=== PATIENT | female | born 1930 | race Caucasian/White ===

== ENCOUNTER 2016-05-10 10:05 | Inpatient (IN) | payer MEDICARE, OTHER ==
[2016-05-10] MEDS ORDERED: NORMAL SALINE 1,000 ML IV ONE (10:41)
--- NOTE | 2016-05-10 11:04 | ERNOTE ---
Lower Extremity HPI - Narrative Date of Service: 05/10/16 - General Lower Extremities Pain: hip: left Time Seen by Provider: 05/10/16 10:37 Source: patient Exam Limitations: no limitations - Immun/Allergies/Home Medications Immunizations: IMMUNIZATION HX Immunizations Up to Date Yes History of Influenza Vaccine No Hx Pneumococcal Vaccination No Allergies/Adverse Reactions: Allergies Allergy/AdvReac Type Severity Reaction Status Date / Time No Known Allergies Allergy Verified 05/10/16 10:36 Home Medications: HOME MEDICATIONS Escitalopram Oxalate [Lexapro] 10 mg PO DAILY 07/30/14 [Last Taken Unknown] Levothyroxine Sodium [Synthroid] 50 mcg PO DAILY 07/30/14 [Last Taken Unknown] Metoprolol Tartrate [Lopressor] 25 mg PO BID 07/30/14 [Last Taken Unknown] Mirtazapine [Mirtazapine (Remeron)] 15 mg PO HS 07/30/14 [Last Taken Unknown] Atorvastatin Calcium 20 mg PO HS 05/10/16 [Last Taken Unknown] Clopidogrel Bisulfate [Plavix] 75 mg PO DAILY 05/10/16 [Last Taken Unknown] Famotidine 20 mg PO HS 05/10/16 [Last Taken Unknown] Lisinopril [Zestril] 2.5 mg PO DAILY 05/10/16 [Last Taken Unknown] Mirtazapine [Mirtazapine (Remeron)] 15 mg PO HS PRN 05/10/16 [Last Taken Unknown ] - History of Present Illness Narrative: Patient brought in by ambulance for fall. Patient to fell yesterday while at the grocery store was then taken home by a friend. She is unable to get out of bed. This morning when daughter try to get her up she had a heart time getting her out of bed and getting her up. ambulance was called to the home residence. Patient was in bed unable to move the left leg. Left leg is slightly internally rotated and shortened. Patient was given morphine in route. She is alert and oriented but does have a slurred speech which daughter thinks it's normal. Denies hitting her head no loss of consciousness denies any present headache at this point in time. Patient was recently discharged from the [facility] just after [place]. She sustained a mild heart attack per daughter and had stents placed in She is denying any abdominal pain no chest pain. She does have a skin tear the right upper arm Date (Duration): 05/09/16 Occurred: other - last night Location of Incident: other - grocery store Method of Injury: Reports: fell Loss of Consciousness: Reports: no loss of consciousness Associated Symptoms: Reports: unable to bear weight. Denies: dizzy/light headedness, chest pain, vomiting/diarrhea, bowel/bladder problems Review of Systems - Review of Systems Constitutional: Absent: fever, chills, diaphoresis, weakness, fatigue ENT: Absent: ear discharge, pulling on ears Respiratory: Absent: shortness of breath, cough, orthopnea Cardiology: Absent: chest pain, palpitations, syncope Gastrointestinal/Abdominal: Absent: nausea, vomiting, diarrhea All Other Systems: All systems neg except as marked - Patient's Past Medical History Patient History - Medical: Anxiety, Depression, Hypothyroidism, Osteoarthritis, Renal Disease, UTI'S Patient History - Cardiac/Respiratory: Coronary Heart Disease, Myocardial Infarction Patient History - Cancer: No Hx of Cancer, Melanoma Patient History - Surgical Procedures: Cataracts, Hysterectomy Patient History - Other: None - Family History Mother Family History - Medical: Family History - Cancer: Colon, Other - skin cancer Father Family History - Medical: , Other - skin problems - Social History Living Situations: other Does anyone smoke in the home?: No Smoking Status: Never smoker Patient requests Smoking Cessation Consult: No Initiate information on Smoking Cessation: No Alcohol Use: none Drug Use: none - Immunizations Immunizations Up to Date: Yes Hx Pneumococcal Vaccination: No History of Influenza Vaccine: No Physical Exam - Physical Exam General Appearance: Present: wd/wn, alert, no apparent distress Eye Exam: PERRL: bilateral, EOMI: bilateral Ears, Nose, Throat: Present: normal ENT inspection, hearing grossly normal, normal pharynx Neck: Present: normal inspection, nontender, supple, full range of motion Respiratory: Present: no respiratory distress, normal breath sounds, no accessory muscle use, chest nontender, lungs clear Cardiovascular/Chest: Present: regular rate, rhythm, no murmur, normal peripheral pulses Peripheral Pulses: N=norm/S=strong/W=weak/B=bound/A=absent: Femoral (R): Normal , Femoral (L): Normal, Dorsalis-pedis (R): Normal, Dorsalis-pedis (L): Normal Gastrointestinal/Abdominal: Present: normal bowel sounds, nontender, nondistended, soft, no organomegaly Back Exam: Present: normal range of motion, no CVA tenderness Extremity Exam: Present: no edema, pelvis stable, other - left hip is internally rotated and shortened good pedal pulses. Decreased range of movement at the left hip joint otherwise pelvis is stable upon compression. Distal neurovascular intact. Neurological Exam: Present: alert, oriented, normal mood/affect, no motor/ sensory deficits Skin Exam: Present: normal color, other - skin tear on the right upper extremity measuring about 7 cm L-shaped not actively bleeding upper extremities and joints moving all joints well no deformity ED Progress - Date and Time Seen: Date and Time: 05/10/16 12:39 Reevaluated at this time - Results and Orders Patient's Lab Results:: I have reviewed the patient's lab results. - Vital Signs Patient's Vital Signs:: I have reviewed the patient's vital signs. Vital Signs: Vital Signs 05/10/16 05/10/16 10:20 10:36 Temperature 36.8 C 36.8 C Pulse Rate 70 70 Respiratory 12 12 Rate Blood Pressure 133/71 133/71 O2 Sat by Pulse 96 96 Oximetry - EKG EKG: NSR EKG read: Reviewed by me EKG Comments: No acute changes, nonspecific ST-T wave changes was inverted T waves in aVL She had a second EKG done at 1447, once again sinus rhythm nonspecific ST-T wave changes no acute changes at this time heart rate 64 - X-Ray X-Ray #1 X-Ray: hip Interpretation: Reviewed by me X-ray Comments: Fracture at the femoral neck of the left femur X-Ray #2 X-Ray: chest Interpretation: Reviewed by me - no acute changes - CT/Ultrasound CT/Ultrasound Narrative: ct Scan of the head acute changes - Progress/Reassessment Chief Complaint: Hip Pain/Injury Progress:: Unchanged Progress Note-Subjective: 05/11/16 09:35 Patient to be admitted to the hospital admitted to Dr. Elam, consulting physician will be Dr. García orthopedics, done through the ER. The patient will be needing medical clearance. Patient be admitted acute [facility] floor with telemetry sent up stable in good condition - Transfer of Care Expected Disposition: Admit Departure Clinical Impression: Hip fracture, left Qualifiers: Encounter type: initial encounter Fracture type: closed Qualified Code(s): S72.002A - Fracture of unspecified part of neck of left femur, initial encounter for closed fracture - Departure Disposition: [facility] Condition: Stable
[2016-05-10 11:07] LABS: Hematocrit 43.3 % (37.0-47.0); Hemoglobin 13.8 gm/dL (12.5-16.0); Mean Cell Volume 92.1 fl (78-100); Mean Corpuscular Hemoglobin 29.4 pg (27-31); Mean Corpuscular Hgb Conc 31.9 g/dl (32-36); Mean Platelet Volume 11.1 fl (6.0-9.5); Neutrophil # 8.2 K/mm3 (1.3-6.0); Neutrophil % 83.4 % (42-75.0); Platelet Count 155 K/mm3 (150-450); Red Cell Distribution Width 13.5 % (11.5-14.0); White Blood Count 9.8 K/mm3 (4.0-10.5)
[2016-05-10 11:18] LABS: Prothrombin Time (Patient) 11.5 Seconds (9.4-11.4)
[2016-05-10 11:19] LABS: INR 1.11 INR (0.90-1.10); Partial Thrombolplastin Time 25.9 Seconds (24-32)
[2016-05-10 11:28] LABS: Albumin * 3.4 gm/dl (3.4-5.0); Anion Gap 13.9 mmol/L (6.8-13.8); BUN/Creatinine Ratio 15.8 (9.0-21.6); Ca. Corrected For Albumin 9.1 mg/dL (8.4-10.2); Calcium * 8.9 mg/dL (7.9-10.9); Carbon Dioxide 26.3 mmol/L (24-32.6); Potassium 4.2 mmol/L (3.4-4.6); Total Protein 6.6 gm/dL (6.2-8.2)
[2016-05-10 11:29] LABS: Urine Bilirubin Negative (NEGATIVE); Urine Blood Negative /ul (NEGATIVE); Urine Ketone Negative (NEGATIVE); Urine Nitrite Negative (NEGATIVE); Urine Protein Negative (NEGATIVE); Urine Specific Gravity >=1.030 SP.GR. (1.005-1.010); Urine Urobilinogen Normal (NORMAL)
[2016-05-10 11:31] LABS: Troponin I 0.617 ng/ml (0.00-0.10)
[2016-05-10 11:38] LABS: Urine Appearance Clear; Urine Bacteria None Seen; Urine Color Yellow; Urine RBC None Seen /hpf (0-5); Urine WBC None Seen /hpf (0-5)
[2016-05-10] MEDS ORDERED: POTASSIUM CHLORIDE 10 MEQ in DEXTROSE 5 % IN WATER 1,000 ML IV PRN ×4 (14:28→14:37)
[2016-05-10] MEDS ORDERED: ACETAMINOPHEN 325 MG TABLET PO PRN (15:02)
--- NOTE | 2016-05-10 15:51 | CONS ---
- Reason for consultation (1) Hip fracture, left Date of Service: 05/10/16 HPI - History of Present Illness Initial Comments: Virginia is an 85 yo F who fell at home last night and sustained a displaced L femoral neck fracture. She recently sustained an CT and underwent PCI and was recently [facility] the [facility] after her recovery. She is a home ambulator and usually ambulates with a cane or walker. Her troponin levels were elevated at 0.6 in the ED this morning. She has been admitted to Medicine. She currently denies any chest pain or hip pain. Allergies/Adverse Reactions: Allergies No Known Allergies Allergy (Verified 05/10/16 10:36) Home Medications: Home Medications Medication Instructions Recorded Last Taken Escitalopram Oxalate [Lexapro] 10 mg PO DAILY 07/30/14 Unknown Levetiracetam [Keppra] 250 mg PO BID 07/30/14 Unknown Levothyroxine Sodium [Synthroid] 25 mcg PO DAILY 07/30/14 Unknown Meloxicam [Mobic] 15 mg PO DAILY 07/30/14 Unknown Metoprolol Tartrate [Lopressor] 25 mg PO BID 07/30/14 Unknown Mirtazapine [Mirtazapine (Remeron)] 15 mg PO HS 07/30/14 Unknown Pantoprazole Sodium [Protonix] 40 mg PO DAILY 07/30/14 Unknown clonazePAM [Klonopin] 0.5 mg PO BID 07/30/14 Unknown - Patient's Past Medical History Patient History - Medical: Anxiety, Depression, Hypothyroidism, Osteoarthritis, Renal Disease, UTI'S Patient History - Cardiac/Respiratory: Coronary Heart Disease, Myocardial Infarction Patient History - Cancer: No Hx of Cancer, Melanoma Patient History - Surgical Procedures: Cataracts, Hysterectomy Patient History - Other: None LMP (females 10-50): Menopausal - Social History Living Situations: other Does anyone smoke in the home?: No Smoking Status: Never smoker Have you smoked in the past 12 months: No Patient requests Smoking Cessation Consult: No Initiate information on Smoking Cessation: No Alcohol Use: none Drug Use: none - Immunizations Immunizations Up to Date: Yes Hx Pneumococcal Vaccination: No History of Influenza Vaccine: No Procedures LINEAR REP LID LACER (04/09/13) Medications - Medications Current Medications: Current Medications Sodium Chloride (Sodium Chloride 0.9%) 1,000 mls @ 125 mls/hr IV .Q8H ONE Stop: 05/10/16 18:40 Last Admin: 05/10/16 12:06 Dose: 125 mls/hr Physical Examination - Exam Narrative: Gen: A&Ox3, NAD Resp: breathing nonlabored on 2L NC MSK: LLE shortened and externally rotated, able to flex and extend all toes, SILT, cap refill <3 sec X rays: Plain films of the pelvis and L hip demonstrate a displaced femoral neck fracture with shortening and internal rotation, mild to moderate pre- existing degenerative changes of the hip appreciated. Vital Signs: Vital Signs - Last Taken Temp 36.8 C 05/10/16 15:24 Pulse 65 05/10/16 15:24 Resp 18 05/10/16 15:24 BP 140/76 05/10/16 15:24 Pulse Ox 95 05/10/16 15:24 O2 Oxygen Delivery Method Nasal Cannula - Results and Findings: Lab/Microbiology results last 24 hrs: 85 yo F w/ displaced L femoral neck fx and elevated troponin following recent CT with PCI. - NWB, strict bedrest - mcgrath catheter - given her age, ambulatory status, and health status, I recommend a L hip hemiarthroplasty - tentatively planning for tomorrow am pending medical clearance - NPO @ midnight - troponins to be trended - continue care per Medicine team - Assessments/Findings (1) Hip fracture, left Problem: Acute Qualifiers: Encounter type: initial encounter Fracture type: closed Qualified Code(s) : S72.002A - Fracture of unspecified part of neck of left femur, initial encounter for closed fracture
[2016-05-10] MEDS ORDERED: FLU VACC QS2016-17 36MOS UP/PF 60 MCG/0.5 ML DISP.SYRIN IM ONE (17:00)
[2016-05-10 17:05] LABS: Hematocrit 39.6 % (37.0-47.0); Hemoglobin 12.7 gm/dL (12.5-16.0); Mean Cell Volume 91.5 fl (78-100); Mean Corpuscular Hemoglobin 29.3 pg (27-31); Mean Corpuscular Hgb Conc 32.1 g/dl (32-36); Mean Platelet Volume 11.7 fl (6.0-9.5); Platelet Count 138 K/mm3 (150-450); Red Blood Count 4.33 M/mm3 (4.2-5.4); Red Cell Distribution Width 13.6 % (11.5-14.0); White Blood Count 7.9 K/mm3 (4.0-10.5)
[2016-05-10 17:27] LABS: Anion Gap 10.3 mmol/L (6.8-13.8); BUN/Creatinine Ratio 17.1 (9.0-21.6); Calcium * 8.4 mg/dL (7.9-10.9); Estimated Creat Clear 19.5; Potassium 4.3 mmol/L (3.4-4.6); T4 Free * 1.17 ng/dL (0.76-1.46); TSH * 0.119 uIU/mL (0.358-3.74)
[2016-05-10 17:41] LABS: Troponin I 0.576 ng/ml (0.00-0.10)
[2016-05-10] MEDS: DEXTROSE 5 % IN WATER 1,000 ML IV PRN (18:02)
--- NOTE | 2016-05-10 19:06 | HP ---
Chief Complaint - Chief Complaint Date of Service: 05/10/16 Time of Service: 18:47 Chief Complaint: Hip injury History of Present Illness: This is an 85 y/o woman who uses a walker for ambulation who tripped on the curb today at the grocery store, falling onto her left side. She was brought to the [facility] ER because of pain and inability to stand, where she was found to have a left femoral neck fracture. If she remains still, she now has very little pain. She is functional, though forgetful, at home with her daughter and son-in-law. She wishes to resume her previous level of functioning, if possible, which she herself is able to articulate tonight. Her son in law confirms this desire for his [id number]. They both acknowledge the risks of hip repair in an 85 y/o person with known CAD. She does in fact have a history of an anterior wall IL, treated with a left anterior descending coronary artery stent over one year ago at the [facility]. Both deny any acute coronary events since. There has been no angina. Although her initial EKG here shows q waves in V1-V4, the repeat EKG is exactly the same, and there is no evidence of acute ischemia. Although the initial troponin is slightly elevated, a repeat troponin is essentially the same, and does not represent acute ischemia. The patient and her son-in-law wish to proceed with surgical repair of her hip fracture. Her labs show evidence of mild hypernatremic dehydration, which we are correcting at the present time. I have spoken by phone both with anesthesia, Tom Farah, and ortho, Dr. Catarino García, and we have all agreed to proceed with surgical repair tomorrow, in accordance with the patient's and her son-in-law's wishes. - Patient's Past Medical History Patient History - Medical: Anxiety, Depression, Hypothyroidism, Osteoarthritis, Renal Disease, UTI'S Patient History - Cardiac/Respiratory: Coronary Heart Disease, Myocardial Infarction Patient History - Cancer: Melanoma Patient History - Surgical Procedures: Cataracts, Hysterectomy Patient History - Other: None LMP (females 10-50): Menopausal - Family History Mother Family History - Medical: Family History - Cancer: Colon, Other - skin cancer Father Family History - Medical: , Other - skin problems - Social History Living Situations: other Does anyone smoke in the home?: No Smoking Status: Never smoker Have you smoked in the past 12 months: No Patient requests Smoking Cessation Consult: No Initiate information on Smoking Cessation: No Alcohol Use: rarely Drug Use: none - Immunizations Immunizations Up to Date: Yes Hx Pneumococcal Vaccination: No History of Influenza Vaccine: No Review Of Systems (GEN) - Review of Systems Generalized/Overall Review: Present: No Symptoms Reported EENTM: Present: Other - NEZ PERCE Respiratory: Present: No Symptoms Reported Cardiac: Present: No Symptoms Reported Abdominal: Present: No Symptoms Reported Genitourinary: Present: No Symptoms Reported Musculoskeletal: Present: Other - Hip fracture Neurological: Present: Other - History of bipolar II disorder Skin: Present: No Symptoms Reported Endocrine: Present: No Symptoms Reported Misc: All systems neg except as marked Immunizations: IMMUNIZATION HX Immunizations Up to Date Yes History of Influenza Vaccine No Hx Pneumococcal Vaccination No Allergies/Adverse Reactions: Allergies Allergy/AdvReac Type Severity Reaction Status Date / Time No Known Allergies Allergy Verified 05/10/16 10:36 Home Medications: HOME MEDICATIONS Escitalopram Oxalate [Lexapro] 10 mg PO DAILY 07/30/14 [Last Taken Unknown] Levothyroxine Sodium [Synthroid] 50 mcg PO DAILY 07/30/14 [Last Taken Unknown] Metoprolol Tartrate [Lopressor] 25 mg PO BID 07/30/14 [Last Taken Unknown] Mirtazapine [Mirtazapine (Remeron)] 15 mg PO HS 07/30/14 [Last Taken Unknown] Atorvastatin Calcium 20 mg PO HS 05/10/16 [Last Taken Unknown] Clopidogrel Bisulfate [Plavix] 75 mg PO DAILY 05/10/16 [Last Taken Unknown] Famotidine 20 mg PO HS 05/10/16 [Last Taken Unknown] Lisinopril [Zestril] 2.5 mg PO DAILY 05/10/16 [Last Taken Unknown] Mirtazapine [Mirtazapine (Remeron)] 15 mg PO HS PRN 05/10/16 [Last Taken Unknown ] Exam - Exam Vital Signs: Vital Signs - Last Taken Selected Entries 05/10/16 18:56 Temperature 36.4 C L Temperature Oral Source Pulse Rate 70 Respiratory 18 Rate Blood Pressure 98/53 Blood Pressure Supine Position O2 Sat by Pulse 95 Oximetry Oxygen Delivery Room Air Method Constitutional: Present: Alert, Oriented x3, Cooperative, Well developed, No distress, Elderly ENT Exam: Present: normal ENT inspection, pharynx normal, TMs normal, hard of hearing Eye Exam: bilateral eye: normal inspection, PERRL, EOMI Neck: Present: supple Back Exam: Present: normal inspection Respiratory: Present: lungs clear, no respiratory distress Cardiovascular/Chest: Present: regular rate, rhythm, no murmur Abdomen: Present: Normal bowel sounds, soft, nontender, nondistended, no rebound tenderness, no hepatospenomegaly, no masses Extremity: Present: other - pain with movement of left leg. Absent: pedal edema Skin Exam: Present: no cyanosis, cool/dry Neurologic: Present: alert, oriented x 3 Appearance: Present: appropriate appearance, neat, impaired recent memory Eye contact: Present: cooperative, good eye contact, normal speech Thoughts: Present: normal thought pattern Diagnostic Studies: Abnormal Lab Results 05/10/16 05/10/16 Range/Units 17:00 17:00 Plt Count 138 L (150-450) K/mm3 MPV 11.7 H (6.0-9.5) fl Sodium 146 H (132-142) mmol/L Plasma Sodium 147 H (130-142) mmol/L Chloride 111 H (97-106) mmol/L BUN 25 H (3-23) mg/dL Creatinine 1.46 H (0.4-1.4) mg/dL Est GFR (Non-Af Amer) 36 L (60-130) mL/min Random Glucose 133 H (70-110) mg/dL Troponin I 0.576 H* (0.00-0.10) ng/ml TSH 0.119 L (0.358-3.74) uIU/mL Laboratory Results WBC 7.9 K/mm3 (4.0-10.5) 05/10/16 17:00 RBC 4.33 M/mm3 (4.2-5.4) 05/10/16 17:00 Hgb 12.7 gm/dL (12.5-16.0) 05/10/16 17:00 Hct 39.6 % (37.0-47.0) 05/10/16 17:00 MCV 91.5 fl (78-100) 05/10/16 17:00 MCH 29.3 pg (27-31) 05/10/16 17:00 MCHC 32.1 g/dl (32-36) 05/10/16 17:00 RDW 13.6 % (11.5-14.0) 05/10/16 17:00 Plt Count 138 K/mm3 (150-450) L 05/10/16 17:00 MPV 11.7 fl (6.0-9.5) H 05/10/16 17:00 Immature Gran % (Auto) 0.20 % (0.001-0.429) 05/10/16 11:00 Immature Gran # (Auto) 0.02 K/mm3 (0.000-0.0310) 05/10/16 11:00 Neutrophils % 83.4 % (42-75.0) H 05/10/16 11:00 Lymphocytes % 7.5 % (20-51) L 05/10/16 11:00 Monocytes % 7.0 % (0.0-9) 05/10/16 11:00 Eosinophils % 1.4 % (0.0-3.0) 05/10/16 11:00 Basophils % 0.5 % (0.0-1.0) 05/10/16 11:00 Nucleated RBC % 0.0 k/mm3 (0-1) 05/10/16 11:00 Neutrophils # 8.2 K/mm3 (1.3-6.0) H 05/10/16 11:00 Lymphocytes # 0.7 k/mm3 (1.5-3.5) L 05/10/16 11:00 Monocytes # 0.7 k/mm3 (0.0-1.0) 05/10/16 11:00 Eosinophils # 0.1 k/mm3 (0.0-0.7) 05/10/16 11:00 Absolute Basophils 0.1 k/mm3 (0.0-0.1) 05/10/16 11:00 PT 11.5 Seconds (9.4-11.4) H 05/10/16 11:00 INR (Anticoag Therapy) 1.11 INR (0.90-1.10) H 05/10/16 11:00 PTT ([place]) 25.9 Seconds (24-32) 05/10/16 11:00 Sodium 146 mmol/L (132-142) H 05/10/16 17:00 Plasma Sodium 147 mmol/L (130-142) H 05/10/16 17:00 Potassium 4.3 mmol/L (3.4-4.6) 05/10/16 17:00 Chloride 111 mmol/L (97-106) H 05/10/16 17:00 Carbon Dioxide 29.0 mmol/L (24-32.6) 05/10/16 17:00 Anion Gap 10.3 mmol/L (6.8-13.8) 05/10/16 17:00 BUN 25 mg/dL (3-23) H 05/10/16 17:00 Creatinine 1.46 mg/dL (0.4-1.4) H 05/10/16 17:00 Est GFR (Non-Af Amer) 36 mL/min (60-130) L 05/10/16 17:00 BUN/Creatinine Ratio 17.1 (9.0-21.6) 05/10/16 17:00 Random Glucose 133 mg/dL (70-110) H 05/10/16 17:00 Calcium 8.4 mg/dL (7.9-10.9) 05/10/16 17:00 Calcium Adj for Albumin 9.1 mg/dL (8.4-10.2) 05/10/16 11:00 Total Bilirubin 1.0 mg/dL (0.0-1.1) 05/10/16 11:00 AST 28 U/L (0-48) 05/10/16 11:00 ALT 22 U/L (19-67) 05/10/16 11:00 Alkaline Phosphatase 67 U/L (50-170) 05/10/16 11:00 Troponin I 0.576 ng/ml (0.00-0.10) H* 05/10/16 17:00 Total Protein 6.6 gm/dL (6.2-8.2) 05/10/16 11:00 Albumin 3.4 gm/dl (3.4-5.0) 05/10/16 11:00 TSH 0.119 uIU/mL (0.358-3.74) L 05/10/16 17:00 Free T4 1.17 ng/dL (0.76-1.46) 05/10/16 17:00 Urine Color Yellow 05/10/16 11:21 Urine Appearance Clear 05/10/16 11:21 Urine pH 6.0 pH (5.0-7.0) 05/10/16 11:21 Ur Specific Ullin >=1.030 SP.GR. (1.005-1.010) 05/10/16 11:21 Urine Protein Negative mg/dL (NEGATIVE) 05/10/16 11:21 Urine Glucose (UA) Negative mg/dL (NEGATIVE) 05/10/16 11:21 Urine Ketones Negative mg/dL (NEGATIVE) 05/10/16 11:21 Urine Blood Negative /ul (NEGATIVE) 05/10/16 11:21 Urine Nitrate Negative (NEGATIVE) 05/10/16 11:21 Urine Bilirubin Negative mg/dl (NEGATIVE) 05/10/16 11:21 Urine Urobilinogen Normal EU/dl (NORMAL) 05/10/16 11:21 Ur Leukocyte Esterase Negative /ul (NEGATIVE) 05/10/16 11:21 Urine RBC None seen /hpf (0-5) 05/10/16 11:21 Urine WBC None seen /hpf (0-5) 05/10/16 11:21 Ur Epithelial Cells None seen /hpf (0-5) 05/10/16 11:21 Urine Bacteria None seen (NONE) 05/10/16 11:21 Urine Culture Comments No culture indicated 05/10/16 11:21 Assessment/Plan - Narrative Narrative: There are no contraindications at the present time to repair of her left femoral neck fracture. She is fairly functional for an 85 y/o woman, and she wishes to return to her previous level of functioning if possible. Risks higher than normal are advanced age and known CAD. She and her son-in-law expressed understanding of the risks and wish to proceed. We will correct the dehydration and hypernatremia overnight. We will repeat labwork and an EKG tomorrow morning. Surgical hip repair is planned for tomorrow. 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 transplanted heart: [place] heart Associated angina: without angina Qualified Code(s): I25.10 - Atherosclerotic heart disease of [place] coronary artery without angina pectoris (6) Hip fracture, left Problem: Acute Qualifiers: Encounter type: initial encounter Fracture type: closed Qualified Code(s) : S72.002A - Fracture of unspecified part of neck of left femur, initial encounter for closed fracture (7) Dehydration Problem: Acute (8) Hypertension Problem: Chronic Qualifiers: Hypertension type: essential hypertension Qualified Code(s): I10 - Essential (primary) hypertension (9) Hypothyroidism Problem: Chronic Qualifiers: Hypothyroidism type: acquired Qualified Code(s): E03.9 - Hypothyroidism, unspecified (10) Tremor Problem: Chronic
[2016-05-10] MEDS ORDERED: ATORVASTATIN CALCIUM 10 MG TABLET PO SCH (21:00)
[2016-05-10] MEDS: levETIRAcetam 500 MG TABLET PO SCH (21:41)
[2016-05-10] MEDS: METOPROLOL TARTRATE 25 MG TABLET PO SCH (21:41)
[2016-05-10] MEDS ORDERED: ATORVASTATIN CALCIUM 40 MG TABLET ONE (21:45)
[2016-05-10] MEDS: clonazePAM 0.5 MG TABLET PO SCH (21:46)
[2016-05-10] MEDS: FAMOTIDINE 20 MG TABLET PO SCH (21:53)
[2016-05-11] MEDS ORDERED: POTASSIUM CHLORIDE 10 MEQ in DEXTROSE 5 % IN WATER 1,000 ML IV SCH ×2 (01:00)
[2016-05-11] MEDS: DEXTROSE 5 % IN WATER 1,000 ML IV PRN (02:22)
[2016-05-11 05:07] LABS: Hematocrit 38.6 % (37.0-47.0); Hemoglobin 12.2 gm/dL (12.5-16.0); Mean Cell Volume 92.8 fl (78-100); Mean Corpuscular Hemoglobin 29.3 pg (27-31); Mean Corpuscular Hgb Conc 31.6 g/dl (32-36); Mean Platelet Volume 10.9 fl (6.0-9.5); Neutrophil # 4.2 K/mm3 (1.3-6.0); Neutrophil % 61.4 % (42-75.0); Platelet Count 115 K/mm3 (150-450); Red Blood Count 4.16 M/mm3 (4.2-5.4); Red Cell Distribution Width 13.6 % (11.5-14.0); White Blood Count 6.9 K/mm3 (4.0-10.5)
[2016-05-11 05:25] LABS: Anion Gap 12.2 mmol/L (6.8-13.8); BUN/Creatinine Ratio 14.7 (9.0-21.6); Calcium * 7.9 mg/dL (7.9-10.9); Carbon Dioxide 26.5 mmol/L (24-32.6); Estimated Creat Clear 19.9; Potassium 3.7 mmol/L (3.4-4.6)
[2016-05-11 05:38] LABS: Troponin I 0.453 ng/ml (0.00-0.10)
--- NOTE | 2016-05-11 07:34 | PN ---
Subjective - Date and Time Seen Date: 05/11/16 Time: 07:28 Subjective Narrative: Very little left hip pain. Feels OK. Has no questions. Reconfirms she wishes her hip to be operatively repaired. Had a good night. No nausea, chest pain, or SOB. Objective - Review of Systems Generalized/Overall Review: Reports: No Symptoms Reported EENTM: Reports: No Symptoms Reported Respiratory: Reports: No Symptoms Reported Cardiac: Reports: No Symptoms Reported Abdominal: Reports: No Symptoms Reported Genitourinary Symptoms: Reports: No Symptoms Reported Musculoskeletal Complaints: Reports: Other - left hip pain when moves. Neurological: Reports: No Symptoms Reported Skin: Reports: No Symptoms Reported Endocrine: Reports: No Symptoms Reported Misc: All systems neg except as marked - Vitals Vitals: Last Vital Signs Selected Entries 05/11/16 07:17 Temperature 37 C Temperature Oral Source Pulse Rate 56 L Respiratory 18 Rate Blood Pressure 136/75 Blood Pressure Supine Position O2 Sat by Pulse 94 Oximetry Oxygen Delivery Room Air Method Oxygen Flow 0 Rate - Abnormal Lab Findings Abnormal Lab Findings: Abnormal Lab Results 05/10/16 05/10/16 05/11/16 Range/Units 17:00 17:00 05:00 RBC (4.2-5.4) M/mm3 Hgb (12.5-16.0) gm/dL MCHC (32-36) g/dl Plt Count 138 L (150-450) K/mm3 MPV 11.7 H (6.0-9.5) fl Eosinophils % (0.0-3.0) % Sodium 146 H (132-142) mmol/L Plasma Sodium 147 H (130-142) mmol/L Chloride 111 H (97-106) mmol/L BUN 25 H (3-23) mg/dL Creatinine 1.46 H 1.43 H (0.4-1.4) mg/dL Est GFR (Non-Af Amer) 36 L 37 L (60-130) mL/min Random Glucose 133 H 124 H (70-110) mg/dL Troponin I 0.576 H* 0.453 H* (0.00-0.10) ng/ml TSH 0.119 L (0.358-3.74) uIU/mL 05/11/16 Range/Units 05:00 RBC 4.16 L (4.2-5.4) M/mm3 Hgb 12.2 L (12.5-16.0) gm/dL MCHC 31.6 L (32-36) g/dl Plt Count 115 L (150-450) K/mm3 MPV 10.9 H (6.0-9.5) fl Eosinophils % 7.8 H (0.0-3.0) % Sodium (132-142) mmol/L Plasma Sodium (130-142) mmol/L Chloride (97-106) mmol/L BUN (3-23) mg/dL Creatinine (0.4-1.4) mg/dL Est GFR (Non-Af Amer) (60-130) mL/min Random Glucose (70-110) mg/dL Troponin I (0.00-0.10) ng/ml TSH (0.358-3.74) uIU/mL - Exam Constitutional: Present: Alert, Oriented x3, Cooperative, Well developed, Well nourished, No distress ENT Exam: Present: normal ENT inspection, hard of hearing Neck: Present: supple Respiratory: Present: lungs clear, no respiratory distress Cardiovascular/Chest: Present: regular rate, rhythm, no murmur Abdomen: Present: Normal bowel sounds, soft, nontender, nondistended, no rebound tenderness, no hepatospenomegaly, no masses Extremity: Present: other - pain with left leg movement. Absent: pedal edema Skin Exam: Present: normal color, warm/dry, no cyanosis Neurologic: Present: alert, oriented x 3 Appearance: Present: appropriate appearance, appropriate insight, neat Eye contact: Present: cooperative, good eye contact Cauti Physician Documentation - Urinary Catheter Management Urethral (Sauer) Date of Insertion: 05/10/16 Assessment/Plan Plan Narrative: Her labwork today, including troponin, is stable. Her EKG is stable. Her hypernatremia has resolved. Her dehydration with renal failure has improved. There are no contraindications at the present time to surgical repair of the left femoral neck fracture, which may proceed as planned. I will now change her IV fluids to D5NS with 20 meQ KCl per liter. I will follow her with you post operatively. - Problems/Diagnosis (1) Bipolar 2 disorder Problem: Chronic (2) Osteoarthritis Problem: Chronic Qualifiers: Osteoarthritis location: multiple joints Osteoarthritis type: primary Qualified Code(s): M15.0 - Primary generalized (osteo)arthritis (3) Hypernatremia Problem: Acute (4) [place] (hard of hearing) Problem: Chronic Qualifiers: Hearing loss type: sensorineural Laterality: bilateral Qualified Code(s) : H90.3 - Sensorineural hearing loss, bilateral (5) CAD (coronary artery disease) Problem: Chronic Qualifiers: Coronary Disease-Associated Artery/Lesion type: [place] artery [place] vs. transplanted heart: [place] heart Associated angina: without angina Qualified Code(s): I25.10 - Atherosclerotic heart disease of [place] coronary artery without angina pectoris (6) Hip fracture, left Problem: Acute Qualifiers: Encounter type: initial encounter Fracture type: closed Qualified Code(s) : S72.002A - Fracture of unspecified part of neck of left femur, initial encounter for closed fracture (7) Dehydration Problem: Acute (8) Hypertension Problem: Chronic Qualifiers: Hypertension type: essential hypertension Qualified Code(s): I10 - Essential (primary) hypertension (9) Hypothyroidism Problem: Chronic Qualifiers: Hypothyroidism type: acquired Qualified Code(s): E03.9 - Hypothyroidism, unspecified (10) Tremor Problem: Chronic
[2016-05-11] MEDS: POTASSIUM CHLORIDE 20 MEQ in DEXTROSE 5%-NORMAL SALINE 990 ML IV SCH ×2 (08:32→22:50)
--- NOTE | 2016-05-11 08:32 | PN ---
Subjective - Date and Time Seen Date: 05/11/16 Subjective Narrative: No events overnight. Pain controlled this am. Denies chest pain/SOB. Objective - Vitals Vitals: Last Vital Signs Temp 37 C 05/11/16 07:17 Pulse 56 L 05/11/16 07:17 Resp 18 05/11/16 07:17 BP 136/75 05/11/16 07:17 Pulse Ox 94 05/11/16 07:17 - Abnormal Lab Findings Abnormal Lab Findings: Abnormal Lab Results 05/10/16 05/10/16 05/11/16 Range/Units 17:00 17:00 05:00 RBC (4.2-5.4) M/mm3 Hgb (12.5-16.0) gm/dL MCHC (32-36) g/dl Plt Count 138 L (150-450) K/mm3 MPV 11.7 H (6.0-9.5) fl Eosinophils % (0.0-3.0) % Sodium 146 H (132-142) mmol/L Plasma Sodium 147 H (130-142) mmol/L Chloride 111 H (97-106) mmol/L BUN 25 H (3-23) mg/dL Creatinine 1.46 H 1.43 H (0.4-1.4) mg/dL Est GFR (Non-Af Amer) 36 L 37 L (60-130) mL/min Random Glucose 133 H 124 H (70-110) mg/dL Troponin I 0.576 H* 0.453 H* (0.00-0.10) ng/ml TSH 0.119 L (0.358-3.74) uIU/mL 05/11/16 Range/Units 05:00 RBC 4.16 L (4.2-5.4) M/mm3 Hgb 12.2 L (12.5-16.0) gm/dL MCHC 31.6 L (32-36) g/dl Plt Count 115 L (150-450) K/mm3 MPV 10.9 H (6.0-9.5) fl Eosinophils % 7.8 H (0.0-3.0) % Sodium (132-142) mmol/L Plasma Sodium (130-142) mmol/L Chloride (97-106) mmol/L BUN (3-23) mg/dL Creatinine (0.4-1.4) mg/dL Est GFR (Non-Af Amer) (60-130) mL/min Random Glucose (70-110) mg/dL Troponin I (0.00-0.10) ng/ml TSH (0.358-3.74) uIU/mL - Exam Exam Narrative: Gen: A&Ox3, NAD Resp: breathing nonlabored on 2L NC MSK: LLE slightly shortened and externally rotated, 5/5 EHL/FHL/DF/PF, SILT, cap refill <3 sec Cauti Physician Documentation - Urinary Catheter Management Urethral (Sauer) Date of Insertion: 05/10/16 Assessment/Plan Plan Narrative: 85 yo F w/ displaced L femoral neck fracture. - to OR today for L hip uncemented bipolar hemiarthroplasty - troponins trending down, moderate surgical risk but cleared by Medicine - WBAT, anterior precautions post op - continue care per Medicine team - Problems/Diagnosis (1) Hip fracture, left Problem: Acute Qualifiers: Encounter type: initial encounter Fracture type: closed Qualified Code(s) : S72.002A - Fracture of unspecified part of neck of left femur, initial encounter for closed fracture
[2016-05-11] MEDS: METOPROLOL TARTRATE 25 MG TABLET PO SCH ×2 (08:33→20:33)
[2016-05-11] MEDS: LEVOTHYROXINE SODIUM 25 MCG TABLET PO SCH (08:33)
[2016-05-11] MEDS: PANTOPRAZOLE SODIUM 40 MG TABLET.EC PO SCH (08:33)
[2016-05-11] MEDS: levETIRAcetam 500 MG TABLET PO SCH ×2 (08:33→20:31)
[2016-05-11] MEDS ORDERED: TRANEXAMIC ACID 1,000 MG in NORMAL SALINE 100 ML IV ONE (08:42)
[2016-05-11] MEDS ORDERED: ceFAZolin SODIUM 1 GM VIAL IV ONE (08:42)
[2016-05-11] MEDS ORDERED: ROPIVACAINE HCL/PF 100 MG, EPINEPHrine 0.2 MG, KETOROLAC TROMETHAMINE 15 MG in NORMAL S... IJ PRN (08:43)
[2016-05-11] MEDS: clonazePAM 0.5 MG TABLET PO SCH ×2 (08:45→20:40)
[2016-05-11] MEDS ORDERED: ESCITALOPRAM OXALATE 10 MG TAB PO SCH (09:00)
[2016-05-11] MEDS ORDERED: LISINOPRIL 2.5 MG TABLET PO SCH (09:00)
[2016-05-11] MEDS ORDERED: RINGERS SOLUTION,LACTATED 1,000 ML IV ONE ×2 (09:25→10:35)
[2016-05-11] MEDS ORDERED: ONDANSETRON HCL/PF 2 MG/ML VIAL IV PRN (11:34)
[2016-05-11] MEDS ORDERED: PROMETHAZINE HCL 5 MG in DEXTROSE 5 % IN WATER 50 ML IV PRN ×2 (11:34)
[2016-05-11] MEDS ORDERED: oxyCODONE HCL/ACETAMINOPHEN 1 TAB TABLET PO PRN ×2 (11:34)
[2016-05-11] MEDS ORDERED: MAGNESIUM HYDROXIDE 30 ML UDC PO PRN (11:34)
[2016-05-11] MEDS ORDERED: MAG HYDROX/ALUMINUM HYD/SIMETH 30 ML UDC PO PRN (11:34)
[2016-05-11] MEDS ORDERED: ACETAMINOPHEN 500 MG TABLET PO PRN (11:34)
--- NOTE | 2016-05-11 11:55 | OR ---
Operative Report - Dictated Report Narrative: Date: 05/11/2016 Preoperative diagnosis: Closed left hip displaced femoral neck fracture. Postoperative diagnosis: Closed left hip displaced femoral neck fracture Procedure: Left hip uncemented geeta-arthroplasty. Surgeon: Catarino García M.D. Design Supervisor: Janelle Sam PA-C Anesthesia: Spinal. Complications: None Specimens: Bone for disposal. Estimated blood loss: 200 milliliters. Retained implants: Depuy [place] size 6 basic cemented femoral stem. Size 45 millimeter ouside diameter self-centering bipolar head with +5 millimeter cobalt chromium 28 mm femoral head. Indications: [place] Is a 85-year-old female household ambulator with a walker who sustained a ground-level fall at home. She was brought to the [facility] emergency department where workup revealed a displaced left femoral neck fracture. This patient was evaluated on the floor and found to have sustained a displaced femoral neck fracture. The risks and benefits were discussed with the patient as well as any power of attorney recruiter. Patient wished to proceed with surgical treatment. The risks, benefits, and alternatives discussed were , blood clots, bleeding, infection, nerve/tendon blood vessel/ injury, malposition of components, dislocation and/or instability of joint, intraoperative fracture, postoperative limited range of motion, persistent pain, failure of components, and need for additional procedures. Patient wished to proceed. Consent was obtained after answering all questions. Procedure: After marking the correct extremity on the floor, the patient was taken to the operating room. A timeout was performed. IV antibiotics consisting of 1 g of Ancef were administered prior to the procedure. A spinal anesthetic was induced by anesthesia. A Sauer catheter was inserted if not are in place. The patient was then transitioned to a lateral position on a well- padded pegboard. And an axillary roll was placed. The head was in neutral position. The non-operative down leg was well-padded with SCD and JANELLE hose in place. The arms were supported and padded to protect from any undue pressure on the bony prominences and nerves. Well-padded anterior and posterior pelvic and chest posts were secured in order to maintain a stable position of the pelvis. This was placed so that the pelvis was perpendicular to the floor. The body was in line with the pelvis. Once it was felt that we had protected all the bony prominences and the patient was well secured with a safety belt as well, the leg was pre-scrubbed with alcohol, prepped and draped in a standard sterile fashion. A standard anterior lateral hip incision was marked out over the greater trochanter. [place] drapes were then placed. The skin incision was then made. Sharp dissection with a scalpel utilizing cautery for hemostasis was carried out down to the gluteus and iliotibial band fascia. This was split in line with the skin incision. The greater trochanter bursa was excised. The anterior and posterior margins of the abductor tendon were identified. The anterior 1/3 of the tendon was tagged and reflected off the greater trochanter leaving a sleeve of tendon for repair at the completion of the case. This exposed the underlying hip joint capsule. An inverted T-type capsulotomy was made extending this up to the brim of the acetabulum. We encountered a hematoma at this point confirming an acute fracture as well as noted displacement of the femoral neck fracture. Using Ronda retractors to assist with elevation of the soft tissues off the anterior, superior, and inferior aspects of the femoral neck, the hip was then placed in a figure 4 position and the femoral neck cleanup cut was then made. With the leg in an externally rotated and adducted position, the cutting flag was utilized in order to michelle for a standard femoral neck cut approximately a fingerbreadth above the level of the lesser trochanter. This was done while protecting the surrounding soft tissues with Ronda retractors. The femoral head was then removed and sized for guidance on the size of the bipolar head. It was noted that there was no significant loss of articular cartilage on both the femoral head and weightbearing portions of the acetabulum. We then returned the leg to the table and turned our attention to the acetabulum. While protecting the surrounding soft tissues, the remaining tissue in the fovea was excised using electrocautery. This was then protected with a sponge while we returned our attention to the femur. With the leg in a figure 4 position utilizing Ronda retractors for soft tissue protection, a box cutting osteotome, followed by Uri awtoña, followed by serial broaches were utilized in order to prepare the femur. It was found that a size 6 broach gave good axial and rotational stability. The proximal femur was visualized to ensure that there were no signs of fracture. A series of heads were trialed. It was found that a + 5 femoral head gave good overall stability. There is minimal longitudinal instability. With the leg in the position of sleep the femoral head was well covered. Hip range of motion was able to reach full extension and external rotation to greater than 75 degrees prior to impingement along the posterior acetabulum. The hip was able to be flexed to greater than 90 degrees with internal rotation greater than 60 degrees prior to anterior impingement. The limb lengths were near equal based on comparison to the contralateral side. At this point was felt this was the appropriately sized femoral components as well as neck and femoral head. The trial implants were removed. The stem was then placed in the appropriate version and height compared to her [place] anatomy. The final femoral bipolar head was then impacted into place. The hip was then reduced and seated completely. The capsule was repaired with interrupted #1 Ethibond. The abductor tendon was repaired to the greater trochanter utilizing #5 Ethibond. This was oversewn with #1 Vicryl. The fascia was closed with interrupted #1 Vicryl. The wounds were thoroughly irrigated as we closed in layers. The deep fat layers were closed with 0 Vicryl and the dermis was approximated with interrupted 3-0 Vicryl. The skin was closed with malia. All sponge, needle, blade, and instrument counts were correct prior to closing the wounds. Sterile dressings consisting of Xeroform, 4 x 4's, ABD, and tape were applied. While removing the dressings, she sustained a skin tear to the left lateral lower leg approximately 15 cm in length. This was repaired using interrupted 4-0 nylon and dressed with xeroform , 4x4s, soft roll, and DARIA wrap. The patient was awoken and transferred to her hospital bed and then to the postanesthesia care unit in stable condition. Postoperative condition: The plan is to return to the medical/surgical inpatient floor postoperatively. Postoperatively 24 hours of IV antibiotics, pain control, physical therapy, occupational therapy, and medical comanagement will be utilized. Patient will be weightbearing as tolerated with anterior hip precautions.
[2016-05-11] MEDS: ceFAZolin SODIUM 1 GM in DEXTROSE 5 % IN WATER 100 ML IV SCH ×4 (13:58→20:29)
[2016-05-11] MEDS: FAMOTIDINE 20 MG TABLET PO SCH (20:32)
[2016-05-11] MEDS ORDERED: ROSUVASTATIN CALCIUM 10 MG TABLET PO SCH (21:00)
[2016-05-11] MEDS ORDERED: SENNOSIDES/DOCUSATE SODIUM 1 TAB TABLET PO SCH (21:00)
[2016-05-12] MEDS: ceFAZolin SODIUM 1 GM in DEXTROSE 5 % IN WATER 100 ML IV SCH ×2 (02:02)
[2016-05-12] MEDS ORDERED: HALOPERIDOL LACTATE 5 MG/ML VIAL IM PRN (03:30)
[2016-05-12] MEDS: POTASSIUM CHLORIDE 20 MEQ in DEXTROSE 5%-NORMAL SALINE 990 ML IV SCH ×3 (06:46→21:41)
[2016-05-12 06:58] LABS: Hemoglobin 9.5 gm/dL (12.5-16.0); Mean Cell Volume 92.6 fl (78-100); Mean Corpuscular Hemoglobin 29.3 pg (27-31); Mean Corpuscular Hgb Conc 31.7 g/dl (32-36); Mean Platelet Volume 11.9 fl (6.0-9.5); Neutrophil # 5.8 K/mm3 (1.3-6.0); Neutrophil % 78.1 % (42-75.0); Platelet Count 101 K/mm3 (150-450); Red Blood Count 3.24 M/mm3 (4.2-5.4); Red Cell Distribution Width 13.3 % (11.5-14.0); White Blood Count 7.4 K/mm3 (4.0-10.5)
[2016-05-12 07:11] LABS: Anion Gap 12.1 mmol/L (6.8-13.8); BUN/Creatinine Ratio 12.7 (9.0-21.6); Calcium * 7.8 mg/dL (7.9-10.9); Carbon Dioxide 23.2 mmol/L (24-32.6); Potassium 4.3 mmol/L (3.4-4.6)
[2016-05-12] MEDS: LEVOTHYROXINE SODIUM 25 MCG TABLET PO SCH (07:26)
[2016-05-12] MEDS: PANTOPRAZOLE SODIUM 40 MG TABLET.EC PO SCH (07:27)
[2016-05-12] MEDS ORDERED: MAG HYDROX/ALUMINUM HYD/SIMETH 30 ML UDC PO PRN (07:29)
[2016-05-12] MEDS ORDERED: ONDANSETRON HCL/PF 2 MG/ML VIAL IV PRN (07:29)
[2016-05-12] MEDS ORDERED: METOPROLOL TARTRATE 25 MG TABLET PO SCH ×2 (09:00→09:21)
[2016-05-12] MEDS ORDERED: LISINOPRIL 2.5 MG TABLET PO SCH (09:00)
[2016-05-12] MEDS ORDERED: HALOPERIDOL LACTATE 5 MG/ML VIAL IM STA (09:20)
[2016-05-12] MEDS ORDERED: NORMAL SALINE 1,000 ML IV ONE ×2 (09:20→11:45)
[2016-05-12] MEDS: ESCITALOPRAM OXALATE 10 MG TAB PO SCH (10:08)
[2016-05-12] MEDS: clonazePAM 0.5 MG TABLET PO SCH ×2 (10:08→20:13)
[2016-05-12] MEDS: levETIRAcetam 500 MG TABLET PO SCH ×2 (10:08→20:14)
[2016-05-12] MEDS: FERROUS SULFATE 325 MG TABLET PO SCH ×3 (10:08→15:59)
[2016-05-12] MEDS: MULTIVITAMINS 1 CAP CAPSULE PO SCH (10:09)
[2016-05-12] MEDS ORDERED: ENOXAPARIN SODIUM 30 MG/0.3 ML SYRG SC SCH (10:35)
[2016-05-12] MEDS: ENOXAPARIN SODIUM 30 MG/0.3 ML SYRG SC SCH (10:39)
--- NOTE | 2016-05-12 13:00 | PN ---
Subjective - Date and Time Seen Date: 05/12/16 Subjective Narrative: Patient with significant delirium and agitation overnight. Blood pressures still labile. Disoriented today. Objective - Vitals Vitals: Last Vital Signs Temp 36.9 C 05/12/16 11:00 Pulse 76 05/12/16 12:22 Resp 20 05/12/16 11:00 BP 92/52 05/12/16 12:22 Pulse Ox 96 05/12/16 11:00 - Abnormal Lab Findings Abnormal Lab Findings: Abnormal Lab Results 05/12/16 05/12/16 Range/Units 06:50 06:50 RBC 3.24 L (4.2-5.4) M/mm3 Hgb 9.5 L (12.5-16.0) gm/dL Hct 30.0 L (37.0-47.0) % MCHC 31.7 L (32-36) g/dl Plt Count 101 L (150-450) K/mm3 MPV 11.9 H (6.0-9.5) fl Neutrophils % 78.1 H (42-75.0) % Lymphocytes % 10.1 L (20-51) % Monocytes % 9.5 H (0.0-9) % Lymphocytes # 0.7 L (1.5-3.5) k/mm3 Chloride 110 H (97-106) mmol/L Carbon Dioxide 23.2 L (24-32.6) mmol/L Creatinine 1.58 H (0.4-1.4) mg/dL Est GFR (Non-Af Amer) 33 L (60-130) mL/min Random Glucose 112 H (70-110) mg/dL Calcium 7.8 L (7.9-10.9) mg/dL - Exam Exam Narrative: Gen: drowsy, disoriented to person, place, and time Resp: breathing comfortably on 2L NC MSK: LLE--> dressings c/d/i, minimal swelling, distal cap refill <3 sec, unable to assess strength or sensation due to patient confusion Cauti Physician Documentation - Urinary Catheter Management Urethral (Sauer) Date of Insertion: 05/10/16 Date of Removal: 05/12/16 Time of Removal: 06:39 Assessment/Plan Plan Narrative: 85 yo F w/ L displaced femoral neck fx s/p uncemented bipolar hemiarthroplasty, POD #1. - WBAT, anterior hip precautions - Percocet discontinued secondary to delirium, tylenol for pain - continue care in SCU per Medicine team - DVT ppx: teds/SCDs/lovenox - PT/OT - dispo: continue SCU care - Problems/Diagnosis (1) Hip fracture, left Problem: Acute Qualifiers: Encounter type: initial encounter Fracture type: closed Qualified Code(s) : S72.002A - Fracture of unspecified part of neck of left femur, initial encounter for closed fracture
--- NOTE | 2016-05-12 18:20 | PN ---
Subjective - Date and Time Seen Date: 05/12/16 Time: 07:00 Subjective Narrative: Combative and confused early this morning. Required 5 mg IM Haldol. Now sedated. Otherwise ok. Objective - Review of Systems Generalized/Overall Review: Reports: No Symptoms Reported - sedated - Vitals Vitals: Last Vital Signs Selected Entries 05/12/16 07:00 Temperature 37.5 C Temperature Temporal Artery Source Scan Pulse Rate 90 Pulse Rhythm Regular Pulse Strength Normal Respiratory 14 Rate Respiratory Normal Depth Respiratory Normal Effort Respiratory Normal Pattern Blood Pressure 80/40 Blood Pressure Supine Position O2 Sat by Pulse 94 Oximetry Oxygen Delivery Room Air Method - Abnormal Lab Findings Abnormal Lab Findings: Abnormal Lab Results 05/12/16 05/12/16 Range/Units 06:50 06:50 RBC 3.24 L (4.2-5.4) M/mm3 Hgb 9.5 L (12.5-16.0) gm/dL Hct 30.0 L (37.0-47.0) % MCHC 31.7 L (32-36) g/dl Plt Count 101 L (150-450) K/mm3 MPV 11.9 H (6.0-9.5) fl Neutrophils % 78.1 H (42-75.0) % Lymphocytes % 10.1 L (20-51) % Monocytes % 9.5 H (0.0-9) % Lymphocytes # 0.7 L (1.5-3.5) k/mm3 Chloride 110 H (97-106) mmol/L Carbon Dioxide 23.2 L (24-32.6) mmol/L Creatinine 1.58 H (0.4-1.4) mg/dL Est GFR (Non-Af Amer) 33 L (60-130) mL/min Random Glucose 112 H (70-110) mg/dL Calcium 7.8 L (7.9-10.9) mg/dL - Exam Constitutional: Present: Obtunded ENT Exam: Present: normal ENT inspection Neck: Present: normal inspection Respiratory: Present: lungs clear, no respiratory distress Cardiovascular/Chest: Present: regular rate, rhythm, no murmur Abdomen: Present: Normal bowel sounds, soft, nondistended, no hepatospenomegaly , no masses Extremity: Present: non-tender, no pedal edema Skin Exam: Present: normal color, warm/dry, no cyanosis Neurologic: Present: other Appearance: Present: neat Cauti Physician Documentation - Urinary Catheter Management Urethral (Sauer) Date of Insertion: 05/10/16 Date of Removal: 05/12/16 Time of Removal: 06:39 Assessment/Plan Plan Narrative: IV fluid bolus. Hold narcotics due to acute delerium. Follow labs. Med surg when able. Adjust bp meds. 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 transplanted heart: [place] heart Associated angina: without angina Qualified Code(s): I25.10 - Atherosclerotic heart disease of [place] coronary artery without angina pectoris (6) Hip fracture, left Problem: Acute Qualifiers: Encounter type: initial encounter Fracture type: closed Qualified Code(s) : S72.002A - Fracture of unspecified part of neck of left femur, initial encounter for closed fracture (7) Dehydration Problem: Acute (8) Hypertension Problem: Chronic Qualifiers: Hypertension type: essential hypertension Qualified Code(s): I10 - Essential (primary) hypertension (9) Hypothyroidism Problem: Chronic Qualifiers: Hypothyroidism type: acquired Qualified Code(s): E03.9 - Hypothyroidism, unspecified (10) Tremor Problem: Chronic (11) Hypotension Problem: Acute Qualifiers: Hypotension type: postprocedural hypotension Qualified Code(s): I95.81 - Postprocedural hypotension (12) Acute blood loss as cause of postoperative anemia Problem: Acute
[2016-05-12] MEDS: FAMOTIDINE 20 MG TABLET PO SCH (20:15)
[2016-05-12] MEDS: ROSUVASTATIN CALCIUM 10 MG TABLET PO SCH (20:15)
[2016-05-12] MEDS ORDERED: MIRTAZAPINE 15 MG TABLET PO SCH (21:00)
[2016-05-13 05:31] LABS: Hematocrit 29.7 % (37.0-47.0); Hemoglobin 9.4 gm/dL (12.5-16.0); Mean Cell Volume 93.1 fl (78-100); Mean Corpuscular Hemoglobin 29.5 pg (27-31); Mean Corpuscular Hgb Conc 31.6 g/dl (32-36); Mean Platelet Volume 11.2 fl (6.0-9.5); Neutrophil # 6.1 K/mm3 (1.3-6.0); Neutrophil % 73.7 % (42-75.0); Platelet Count 112 K/mm3 (150-450); Red Blood Count 3.19 M/mm3 (4.2-5.4); Red Cell Distribution Width 13.5 % (11.5-14.0); White Blood Count 8.3 K/mm3 (4.0-10.5)
--- NOTE | 2016-05-13 05:36 | PN ---
<Gladys Simpson - Last Filed: 05/13/16 06:25> Subjective - Date and Time Seen Date: 05/13/16 Time: 05:36 Subjective Narrative: Mrs. Toney continues to be confused this morning. Upon examination she is pulling at her telemetry and gown. She will not answer questions and is combative. Her respirations are increased, however her O2 saturations have remained in the high 90's and lung mcdonnell are clear. Mcgrath was dc'd yesterday and she has had 3 incontinent episodes since. Dressing on left hip remains c/d/ i. We will continue to hold all narcotics and benzos, Remeron 15mg was restarted last night as pt was combative pulling out multiple IVs, mcgrath, and attempting to get out of bed the night before. Overnight she was much more calm and did not pull out any IVs nor did she attempt to get out of bed. Betablocker will be increased to resume at normal home dose of 25mg. Objective - Review of Systems Generalized/Overall Review: Reports: No Symptoms Reported - MARIA L as pt is confused and does not respond to questioning. - Vitals Vitals: Last Vital Signs Temp 36.8 C 05/13/16 02:00 Pulse 84 05/13/16 02:00 Resp 18 05/13/16 02:00 BP 140/70 05/13/16 02:00 Pulse Ox 98 2L 05/13/16 02:00 - Abnormal Lab Findings Abnormal Lab Findings: Abnormal Lab Results 05/12/16 05/12/16 05/13/16 Range/Units 06:50 06:50 05:15 RBC 3.24 L 3.19 L (4.2-5.4) M/mm3 Hgb 9.5 L 9.4 L (12.5-16.0) gm/dL Hct 30.0 L 29.7 L (37.0-47.0) % MCHC 31.7 L 31.6 L (32-36) g/dl Plt Count 101 L 112 L (150-450) K/mm3 MPV 11.9 H 11.2 H (6.0-9.5) fl Immature Gran % (Auto) 0.50 H (0.001-0.429) % Immature Gran # (Auto) 0.04 H (0.000-0.0310) K/mm3 Neutrophils % 78.1 H (42-75.0) % Lymphocytes % 10.1 L 12.0 L (20-51) % Monocytes % 9.5 H 11.0 H (0.0-9) % Neutrophils # 6.1 H (1.3-6.0) K/mm3 Lymphocytes # 0.7 L 1.0 L (1.5-3.5) k/mm3 Chloride 110 H (97-106) mmol/L Carbon Dioxide 23.2 L (24-32.6) mmol/L Creatinine 1.58 H (0.4-1.4) mg/dL Est GFR (Non-Af Amer) 33 L (60-130) mL/min Random Glucose 112 H (70-110) mg/dL Calcium 7.8 L (7.9-10.9) mg/dL - Exam Constitutional: Present: Alert, Elderly, Thin and frail ENT Exam: Present: dry mucous membranes Respiratory: Present: no accessory muscle use, decreased breath sounds, No wheezing, other - tachypnea Cardiovascular/Chest: Present: normal peripheral pulses Abdomen: Present: Normal bowel sounds, soft, nontender, nondistended Extremity: Present: no pedal edema, normal capillary refill, swelling - left thigh Skin Exam: Present: normal color, warm/dry, no cyanosis, other - incision to left hip without erythema or warmth Lymphatic: Present: no adenopathy Neurologic: Present: alert, motor weakness, disoriented x 3 Appearance: Present: impaired insight Eye contact: Present: refused to answer, uncooperative Thoughts: Present: delusions, paranoid Cauti Physician Documentation - Urinary Catheter Management Urethral (Mcgrath) Urethral Indwelling: No Date of Insertion: 05/10/16 Date of Removal: 05/12/16 Time of Removal: 06:39 Assessment/Plan - Problems/Diagnosis (1) Hip fracture, left Problem: Resolved QualifierTitle: Encounter type: initial encounter Fracture type: closed Qualified Code(s): S72.002A - Fracture of unspecified part of neck of left femur, initial encounter for closed fracture Narrative: ORIF completed on 05/[address] García. Continue to hold narcotics d/t increase confusion and delirium in pt. Other orders per ortho. (2) Hypotension Problem: Resolved QualifierTitle: Hypotension type: postprocedural hypotension Qualified Code(s): I95.81 - Postprocedural hypotension (3) Bipolar 2 disorder Problem: Chronic (4) CAD (coronary artery disease) Problem: Chronic QualifierTitle: Coronary Disease-Associated Artery/Lesion type: [place] artery [place] vs. transplanted heart: [place] heart Associated angina: without angina Qualified Code(s): I25.10 - Atherosclerotic heart disease of [place] coronary artery without angina pectoris Narrative: Increase metoprolol to 25mg from 12.5mg as post op hypotension has resolved. Continue to hold DARIA-I (5) Hypothyroidism Problem: Chronic QualifierTitle: Hypothyroidism type: acquired Qualified Code(s): E03.9 - Hypothyroidism, unspecified Narrative: TSH this am. Continue Synthroid <Renard Camargo - Last Filed: 05/13/16 06:51> Objective - Vitals Vitals: Last Vital Signs Temp 36.8 C 05/13/16 02:00 Pulse 84 05/13/16 02:00 Resp 18 05/13/16 02:00 BP 140/70 05/13/16 02:00 Pulse Ox 98 05/13/16 02:00 - Abnormal Lab Findings Abnormal Lab Findings: Abnormal Lab Results 05/12/16 05/12/16 05/13/16 Range/Units 06:50 06:50 05:15 RBC 3.24 L 3.19 L (4.2-5.4) M/mm3 Hgb 9.5 L 9.4 L (12.5-16.0) gm/dL Hct 30.0 L 29.7 L (37.0-47.0) % MCHC 31.7 L 31.6 L (32-36) g/dl Plt Count 101 L 112 L (150-450) K/mm3 MPV 11.9 H 11.2 H (6.0-9.5) fl Immature Gran % (Auto) 0.50 H (0.001-0.429) % Immature Gran # (Auto) 0.04 H (0.000-0.0310) K/mm3 Neutrophils % 78.1 H (42-75.0) % Lymphocytes % 10.1 L 12.0 L (20-51) % Monocytes % 9.5 H 11.0 H (0.0-9) % Neutrophils # 6.1 H (1.3-6.0) K/mm3 Lymphocytes # 0.7 L 1.0 L (1.5-3.5) k/mm3 Potassium (3.4-4.6) mmol/L Chloride 110 H (97-106) mmol/L Carbon Dioxide 23.2 L (24-32.6) mmol/L Creatinine 1.58 H (0.4-1.4) mg/dL Est GFR (Non-Af Amer) 33 L (60-130) mL/min Random Glucose 112 H (70-110) mg/dL Calcium 7.8 L (7.9-10.9) mg/dL 05/13/16 Range/Units 05:15 RBC (4.2-5.4) M/mm3 Hgb (12.5-16.0) gm/dL Hct (37.0-47.0) % MCHC (32-36) g/dl Plt Count (150-450) K/mm3 MPV (6.0-9.5) fl Immature Gran % (Auto) (0.001-0.429) % Immature Gran # (Auto) (0.000-0.0310) K/mm3 Neutrophils % (42-75.0) % Lymphocytes % (20-51) % Monocytes % (0.0-9) % Neutrophils # (1.3-6.0) K/mm3 Lymphocytes # (1.5-3.5) k/mm3 Potassium 4.7 H (3.4-4.6) mmol/L Chloride 114 H (97-106) mmol/L Carbon Dioxide 23.5 L (24-32.6) mmol/L Creatinine (0.4-1.4) mg/dL Est GFR (Non-Af Amer) 43 L D (60-130) mL/min Random Glucose 124 H (70-110) mg/dL Calcium 7.6 L (7.9-10.9) mg/dL Assessment/Plan Plan Narrative: Still confused and uncooperative. Will use low dose meds. Will adjust potassium and follow labs. Avoid narcotics. I personally directed the nurse practitioner's care for this patient. 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 transplanted heart: [place] heart Associated angina: without angina Qualified Code(s): I25.10 - Atherosclerotic heart disease of [place] coronary artery without angina pectoris (6) Hip fracture, left Problem: Resolved Qualifiers: Encounter type: initial encounter Fracture type: closed Qualified Code(s) : S72.002A - Fracture of unspecified part of neck of left femur, initial encounter for closed fracture (7) Dehydration Problem: Acute (8) Hypertension Problem: Chronic Qualifiers: Hypertension type: essential hypertension Qualified Code(s): I10 - Essential (primary) hypertension (9) Hypothyroidism Problem: Chronic Qualifiers: Hypothyroidism type: acquired Qualified Code(s): E03.9 - Hypothyroidism, unspecified (10) Tremor Problem: Chronic (11) Hypotension Problem: Resolved Qualifiers: Hypotension type: postprocedural hypotension Qualified Code(s): I95.81 - Postprocedural hypotension (12) Acute blood loss as cause of postoperative anemia Problem: Acute
[2016-05-13 06:06] LABS: Anion Gap 9.2 mmol/L (6.8-13.8); BUN/Creatinine Ratio 12.7 (9.0-21.6); Calcium * 7.6 mg/dL (7.9-10.9); Carbon Dioxide 23.5 mmol/L (24-32.6); Estimated Creat Clear 22.6; Potassium 4.7 mmol/L (3.4-4.6); TSH * 2.098 uIU/mL (0.358-3.74)
[2016-05-13] MEDS: POTASSIUM CHLORIDE 20 MEQ in DEXTROSE 5%-NORMAL SALINE 990 ML IV SCH ×2 (06:13→06:26)
[2016-05-13] MEDS: DEXTROSE 5%-NORMAL SALINE 1,000 ML IV PRN ×2 (06:56→17:43)
[2016-05-13] MEDS: PANTOPRAZOLE SODIUM 40 MG TABLET.EC PO SCH (07:16)
[2016-05-13] MEDS: risperiDONE 0.25 MG TABLET PO SCH ×2 (07:16→19:14)
[2016-05-13] MEDS: LORazepam 0.5 MG TABLET PO SCH ×2 (07:16→13:59)
[2016-05-13] MEDS: LEVOTHYROXINE SODIUM 25 MCG TABLET PO SCH (07:16)
[2016-05-13] MEDS: ACETAMINOPHEN 325 MG TABLET PO PRN ×2 (07:24→17:32)
[2016-05-13] MEDS: FERROUS SULFATE 325 MG TABLET PO SCH ×3 (10:36→17:32)
[2016-05-13] MEDS: levETIRAcetam 500 MG TABLET PO SCH ×2 (10:36→20:51)
[2016-05-13] MEDS: MULTIVITAMINS 1 CAP CAPSULE PO SCH (10:37)
[2016-05-13] MEDS: METOPROLOL TARTRATE 25 MG TABLET PO SCH ×2 (10:37→20:56)
[2016-05-13] MEDS: ESCITALOPRAM OXALATE 10 MG TAB PO SCH (10:37)
[2016-05-13] MEDS: clonazePAM 0.5 MG TABLET PO SCH ×2 (10:37→21:19)
[2016-05-13] MEDS: ENOXAPARIN SODIUM 30 MG/0.3 ML SYRG SC SCH (10:39)
[2016-05-13] MEDS: ROSUVASTATIN CALCIUM 10 MG TABLET PO SCH (20:50)
[2016-05-13] MEDS: FAMOTIDINE 20 MG TABLET PO SCH (20:54)
[2016-05-13] MEDS: MIRTAZAPINE 15 MG TABLET PO SCH (20:55)
[2016-05-14] MEDS: LORazepam 0.5 MG TABLET PO SCH (00:19)
[2016-05-14] MEDS: DEXTROSE 5%-NORMAL SALINE 1,000 ML IV PRN ×3 (02:54→07:12)
[2016-05-14] MEDS: ACETAMINOPHEN 325 MG TABLET PO PRN ×2 (05:33→15:29)
--- NOTE | 2016-05-14 06:07 | PN ---
<Gladys Simpson - Last Filed: 05/14/16 06:12> Subjective - Date and Time Seen Date: 05/14/16 Time: 06:12 Subjective Narrative: Mrs. Toney is much more lethargic this morning, her ativan, risperidone, and klonopin was restarted yesterday due to combativeness. Ativan was held last night due to lethargy. I suspect that the addition of these are what is causing her to be more sedated, so will dc this. She has slight expiratory wheezing upon examination with continued tachypnea, although oxygen saturations have remained in the mid 90's. I will decrease her IVF incase she is getting some pulmonary edema. She had a total of 8 incontinent voids yesterday with 370ml PO intake. Dressing to hip remains c/d/i, continue to work with PT if mentation allows. I suspect she will have a long road to recovery due to advanced age, decreased excretion of medications and hospital induced delirium complicating recovery. Objective - Review of Systems Generalized/Overall Review: Reports: No Symptoms Reported - MARIA L, pt does not wake up during examination - Vitals Vitals: Last Vital Signs Temp 37.1 C 05/14/16 02:15 Pulse 63 05/14/16 02:15 Resp 20 05/14/16 02:15 BP 144/84 05/14/16 02:15 Pulse Ox 93 05/14/16 02:15 - Abnormal Lab Findings Abnormal Lab Findings: Abnormal Lab Results 05/13/16 Range/Units 05:15 Potassium 4.7 H (3.4-4.6) mmol/L Chloride 114 H (97-106) mmol/L Carbon Dioxide 23.5 L (24-32.6) mmol/L Est GFR (Non-Af Amer) 43 L D (60-130) mL/min Random Glucose 124 H (70-110) mg/dL Calcium 7.6 L (7.9-10.9) mg/dL - EKG/Xray Findings EKG: NSR - Exam Constitutional: Present: No distress, Somnolent, Elderly, Thin and frail ENT Exam: Present: hard of hearing Respiratory: Present: no respiratory distress, decreased breath sounds, wheezing , expiration (prolonged) Cardiovascular/Chest: Present: normal peripheral pulses, regular rate, rhythm, no chest tenderness, no murmur Abdomen: Present: Normal bowel sounds, soft, nontender, nondistended Extremity: Present: normal range of motion, normal capillary refill, lower extremity edema - left lower extremity Skin Exam: Present: normal color, warm/dry, no cyanosis Lymphatic: Present: no adenopathy Cauti Physician Documentation - Urinary Catheter Management Urethral ([place]) Urethral Indwelling: No Date of Insertion: 05/10/16 Date of Removal: 05/12/16 Time of Removal: 06:39 Assessment/Plan - Problems/Diagnosis (1) Hip fracture, left Problem: Resolved QualifierTitle: Encounter type: initial encounter Fracture type: closed Qualified Code(s): S72.002A - Fracture of unspecified part of neck of left femur, initial encounter for closed fracture Narrative: Continue to work with PT/OT once pt more alert. OOB for meals. No narcotics or benzos. Further orders per Dr. García. (2) Bipolar 2 disorder Problem: Chronic Narrative: Stable, hold all major tranquilizers, benzos, and narcotics. If pt is combative consider PRN haldol for shorter effect. (3) CAD (coronary artery disease) Problem: Chronic QualifierTitle: Coronary Disease-Associated Artery/Lesion type: [place] artery [place] vs. transplanted heart: [place] heart Associated angina: without angina Qualified Code(s): I25.10 - Atherosclerotic heart disease of [place] coronary artery without angina pectoris Narrative: Continue betablocker, continue to hold DARIA-I. (4) Hypothyroidism Problem: Chronic QualifierTitle: Hypothyroidism type: acquired Qualified Code(s): E03.9 - Hypothyroidism, unspecified Narrative: TSH improved this morning, continue synthroid. <Renard Camargo - Last Filed: 05/14/16 10:03> Objective - Vitals Vitals: Last Vital Signs Temp 36.4 C L 05/14/16 06:51 Pulse 71 05/14/16 08:34 Resp 20 05/14/16 06:51 BP 144/72 05/14/16 08:34 Pulse Ox 92 05/14/16 06:51 - Abnormal Lab Findings Abnormal Lab Findings: Abnormal Lab Results 05/14/16 Range/Units 06:12 Sodium 145 H (132-142) mmol/L Plasma Sodium 145 H (130-142) mmol/L Chloride 114 H (97-106) mmol/L Carbon Dioxide 21.8 L (24-32.6) mmol/L Est GFR (Non-Af Amer) 51 L (60-130) mL/min Calcium 7.4 L (7.9-10.9) mg/dL Assessment/Plan Plan Narrative: I have reviewed the record, examined the patient, and directly supervised Gladys Simpson's care for the patient. Sedated this morning. We will stop benzodiazepines, major tranquilizers, and as much as we can, proceed with post op protocol. 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 transplanted heart: [place] heart Associated angina: without angina Qualified Code(s): I25.10 - Atherosclerotic heart disease of [place] coronary artery without angina pectoris (6) Hip fracture, left Problem: Resolved Qualifiers: Encounter type: initial encounter Fracture type: closed Qualified Code(s) : S72.002A - Fracture of unspecified part of neck of left femur, initial encounter for closed fracture (7) Dehydration Problem: Acute (8) Hypertension Problem: Chronic Qualifiers: Hypertension type: essential hypertension Qualified Code(s): I10 - Essential (primary) hypertension (9) Hypothyroidism Problem: Chronic Qualifiers: Hypothyroidism type: acquired Qualified Code(s): E03.9 - Hypothyroidism, unspecified (10) Tremor Problem: Chronic (11) Hypotension Problem: Resolved Qualifiers: Hypotension type: postprocedural hypotension Qualified Code(s): I95.81 - Postprocedural hypotension (12) Acute blood loss as cause of postoperative anemia Problem: Acute
[2016-05-14 06:22] LABS: Anion Gap 13.1 mmol/L (6.8-13.8); BUN/Creatinine Ratio 11.1 (9.0-21.6); Calcium * 7.4 mg/dL (7.9-10.9); Carbon Dioxide 21.8 mmol/L (24-32.6); Estimated Creat Clear 26.4; Potassium 3.9 mmol/L (3.4-4.6)
[2016-05-14] MEDS: PANTOPRAZOLE SODIUM 40 MG TABLET.EC PO SCH (07:02)
[2016-05-14] MEDS: LEVOTHYROXINE SODIUM 25 MCG TABLET PO SCH (07:02)
[2016-05-14] MEDS: FERROUS SULFATE 325 MG TABLET PO SCH ×3 (08:33→16:06)
[2016-05-14] MEDS: ESCITALOPRAM OXALATE 10 MG TAB PO SCH (08:34)
[2016-05-14] MEDS: DEXTROSE 5%-0.2 NORMAL SALINE 1,000 ML IV PRN ×2 (08:34→23:55)
[2016-05-14] MEDS: levETIRAcetam 500 MG TABLET PO SCH ×2 (08:34→20:39)
[2016-05-14] MEDS: MULTIVITAMINS 1 CAP CAPSULE PO SCH (08:34)
[2016-05-14] MEDS: METOPROLOL TARTRATE 25 MG TABLET PO SCH ×2 (08:34→20:42)
[2016-05-14] MEDS: ENOXAPARIN SODIUM 30 MG/0.3 ML SYRG SC SCH (11:29)
[2016-05-14] MEDS ORDERED: FUROSEMIDE 10 MG/ML VIAL IV ONE (13:30)
[2016-05-14] MEDS: ROSUVASTATIN CALCIUM 10 MG TABLET PO SCH (20:39)
[2016-05-14] MEDS: FAMOTIDINE 20 MG TABLET PO SCH (20:39)
[2016-05-14] MEDS: MIRTAZAPINE 15 MG TABLET PO SCH (20:40)
[2016-05-15 05:03] LABS: Hematocrit 30.9 % (37.0-47.0); Mean Cell Volume 89.3 fl (78-100); Mean Corpuscular Hemoglobin 28.9 pg (27-31); Mean Corpuscular Hgb Conc 32.4 g/dl (32-36); Mean Platelet Volume 11.3 fl (6.0-9.5); Neutrophil # 6.8 K/mm3 (1.3-6.0); Neutrophil % 75.9 % (42-75.0); Platelet Count 170 K/mm3 (150-450); Red Blood Count 3.46 M/mm3 (4.2-5.4); Red Cell Distribution Width 13.5 % (11.5-14.0); White Blood Count 8.9 K/mm3 (4.0-10.5)
[2016-05-15 05:13] LABS: Anion Gap 13.3 mmol/L (6.8-13.8); BUN/Creatinine Ratio 10.7 (9.0-21.6); Calcium * 7.9 mg/dL (7.9-10.9); Carbon Dioxide 24.3 mmol/L (24-32.6); Estimated Creat Clear 23.3; Potassium 3.6 mmol/L (3.4-4.6)
--- NOTE | 2016-05-15 07:00 | PN ---
Subjective - Date and Time Seen Date: 05/15/16 Time: 06:56 Subjective Narrative: Less combative and confused. More cooperative with nursing staff. No apparent pain. Objective - Review of Systems Generalized/Overall Review: Reports: No Symptoms Reported - poor historian - Vitals Vitals: Last Vital Signs Selected Entries 05/15/16 02:32 Temperature 36.6 C Temperature Oral Source Pulse Rate 91 Pulse Rhythm Regular Pulse Strength Normal Respiratory 16 Rate Respiratory Normal Depth Respiratory Normal Effort Non-Labored Respiratory Normal Pattern Blood Pressure 166/88 Blood Pressure Supine Position O2 Sat by Pulse 95 Oximetry Oxygen Delivery Room Air Method - Abnormal Lab Findings Abnormal Lab Findings: Abnormal Lab Results 05/15/16 05/15/16 Range/Units 04:30 04:30 RBC 3.46 L (4.2-5.4) M/mm3 Hgb 10.0 L (12.5-16.0) gm/dL Hct 30.9 L (37.0-47.0) % MPV 11.3 H (6.0-9.5) fl Neutrophils % 75.9 H (42-75.0) % Lymphocytes % 10.8 L (20-51) % Monocytes % 10.2 H (0.0-9) % Neutrophils # 6.8 H (1.3-6.0) K/mm3 Lymphocytes # 1.0 L (1.5-3.5) k/mm3 Est GFR (Non-Af Amer) 44 L (60-130) mL/min Random Glucose 117 H (70-110) mg/dL - Exam Constitutional: Present: Alert, Cooperative, Well developed, No distress ENT Exam: Present: normal ENT inspection Neck: Present: normal inspection Respiratory: Present: lungs clear, no respiratory distress Cardiovascular/Chest: Present: regular rate, rhythm, no murmur Abdomen: Present: Normal bowel sounds, soft, nontender, nondistended, no rebound tenderness, no hepatospenomegaly, no masses Extremity: Present: non-tender, no pedal edema, other - dressing not removed Skin Exam: Present: normal color, warm/dry, no cyanosis Neurologic: Present: alert Appearance: Present: appropriate appearance, neat Eye contact: Present: cooperative Cauti Physician Documentation - Urinary Catheter Management Urethral (Sauer) Urethral Indwelling: No Date of Insertion: 05/10/16 Date of Removal: 05/12/16 Time of Removal: 06:39 Assessment/Plan Plan Narrative: Post op protocol. Follow labs as needed. skilled nursing in 2 days. 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 transplanted heart: [place] heart Associated angina: without angina Qualified Code(s): I25.10 - Atherosclerotic heart disease of [place] coronary artery without angina pectoris (6) Hip fracture, left Problem: Resolved Qualifiers: Encounter type: initial encounter Fracture type: closed Qualified Code(s) : S72.002A - Fracture of unspecified part of neck of left femur, initial encounter for closed fracture (7) Dehydration Problem: Acute (8) Hypertension Problem: Chronic Qualifiers: Hypertension type: essential hypertension Qualified Code(s): I10 - Essential (primary) hypertension (9) Hypothyroidism Problem: Chronic Qualifiers: Hypothyroidism type: acquired Qualified Code(s): E03.9 - Hypothyroidism, unspecified (10) Tremor Problem: Chronic (11) Hypotension Problem: Resolved Qualifiers: Hypotension type: postprocedural hypotension Qualified Code(s): I95.81 - Postprocedural hypotension (12) Acute blood loss as cause of postoperative anemia Problem: Acute
[2016-05-15] MEDS: PANTOPRAZOLE SODIUM 40 MG TABLET.EC PO SCH (08:11)
[2016-05-15] MEDS: levETIRAcetam 500 MG TABLET PO SCH ×2 (08:11→21:27)
[2016-05-15] MEDS: FERROUS SULFATE 325 MG TABLET PO SCH ×3 (08:11→17:58)
[2016-05-15] MEDS: METOPROLOL TARTRATE 25 MG TABLET PO SCH ×2 (08:11→21:27)
[2016-05-15] MEDS: ESCITALOPRAM OXALATE 10 MG TAB PO SCH (08:11)
[2016-05-15] MEDS: LEVOTHYROXINE SODIUM 25 MCG TABLET PO SCH (08:11)
[2016-05-15] MEDS: MULTIVITAMINS 1 CAP CAPSULE PO SCH (08:12)
[2016-05-15] MEDS: ACETAMINOPHEN 325 MG TABLET PO PRN (09:16)
[2016-05-15] MEDS: ENOXAPARIN SODIUM 30 MG/0.3 ML SYRG SC SCH (10:38)
[2016-05-15] MEDS: DEXTROSE 5%-0.2 NORMAL SALINE 1,000 ML IV PRN (14:34)
[2016-05-15] MEDS: ROSUVASTATIN CALCIUM 10 MG TABLET PO SCH (21:27)
[2016-05-15] MEDS: FAMOTIDINE 20 MG TABLET PO SCH (21:27)
[2016-05-15] MEDS: MIRTAZAPINE 15 MG TABLET PO SCH (21:28)
[2016-05-15] MEDS: AMPICILLIN SODIUM/SULBACTAM NA 1.5 GM in NORMAL SALINE 100 ML IV SCH (23:31)
[2016-05-16] MEDS ORDERED: ALBUTEROL SULFATE/IPRATROPIUM 3 ML NEBU IH PRN (01:09)
[2016-05-16] MEDS: AMPICILLIN SODIUM/SULBACTAM NA 1.5 GM in NORMAL SALINE 100 ML IV SCH ×3 (05:25→22:38)
[2016-05-16] MEDS: DEXTROSE 5%-0.2 NORMAL SALINE 1,000 ML IV PRN ×2 (05:30→20:42)
[2016-05-16 06:45] LABS: Anion Gap 14.8 mmol/L (6.8-13.8); BUN/Creatinine Ratio 12.8 (9.0-21.6); Bilirubin, Total 0.9 mg/dL (0.0-1.1); Ca. Corrected For Albumin 8.9 mg/dL (8.4-10.2); Calcium * 7.6 mg/dL (7.9-10.9); Carbon Dioxide 24.8 mmol/L (24-32.6); Potassium 3.6 mmol/L (3.4-4.6); Total Protein 5.6 gm/dL (6.2-8.2)
[2016-05-16] MEDS: LEVOTHYROXINE SODIUM 25 MCG TABLET PO SCH (07:26)
--- NOTE | 2016-05-16 07:26 | PN ---
Subjective - Date and Time Seen Date: 05/16/16 Time: 07:23 Subjective Narrative: More confused. Vomited and aspirated last night. Stomach virus going around the hospital. On IV antibiotics now for pneumonia. Objective - Review of Systems Generalized/Overall Review: Reports: No Symptoms Reported - more confused, poor historian. - Vitals Vitals: Last Vital Signs Selected Entries 05/16/16 06:53 Temperature 37.5 C Temperature Axillary Source Pulse Rate 109 H Pulse Rhythm Regular Pulse Strength Normal Respiratory 20 Rate Respiratory Normal Depth Respiratory Normal Effort Non-Labored Respiratory Normal Pattern Blood Pressure 133/71 Blood Pressure Supine Position O2 Sat by Pulse 91 Oximetry Oxygen Delivery Nasal Cannula Method Oxygen Flow 2 Rate - Abnormal Lab Findings Abnormal Lab Findings: Abnormal Lab Results 05/16/16 Range/Units 06:25 Anion Gap 14.8 H (6.8-13.8) mmol/L Est GFR (Non-Af Amer) 40 L (60-130) mL/min Random Glucose 123 H (70-110) mg/dL Calcium 7.6 L (7.9-10.9) mg/dL AST 85 H (0-48) U/L ALT 70 H (19-67) U/L Total Protein 5.6 L (6.2-8.2) gm/dL Albumin 2.0 L (3.4-5.0) gm/dl - Exam Constitutional: Present: Alert, Mild distress ENT Exam: Present: normal ENT inspection Neck: Present: normal inspection Respiratory: Present: lungs clear, no respiratory distress Cardiovascular/Chest: Present: regular rate, rhythm, no murmur Abdomen: Present: Normal bowel sounds, soft, nontender, nondistended, no rebound tenderness, no hepatospenomegaly, no masses Extremity: Present: non-tender, no pedal edema Skin Exam: Present: normal color, warm/dry, no cyanosis Neurologic: Present: alert Appearance: Present: appropriate appearance, neat Cauti Physician Documentation - Urinary Catheter Management Urethral (Sauer) Urethral Indwelling: No Date of Insertion: 05/10/16 Date of Removal: 05/12/16 Time of Removal: 06:39 Assessment/Plan Plan Narrative: IV antibiotics. Clear liquids. Zofran. Follow labs. 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 transplanted heart: [place] heart Associated angina: without angina Qualified Code(s): I25.10 - Atherosclerotic heart disease of [place] coronary artery without angina pectoris (6) Hip fracture, left Problem: Resolved Qualifiers: Encounter type: initial encounter Fracture type: closed Qualified Code(s) : S72.002A - Fracture of unspecified part of neck of left femur, initial encounter for closed fracture (7) Dehydration Problem: Acute (8) Hypertension Problem: Chronic Qualifiers: Hypertension type: essential hypertension Qualified Code(s): I10 - Essential (primary) hypertension (9) Hypothyroidism Problem: Chronic Qualifiers: Hypothyroidism type: acquired Qualified Code(s): E03.9 - Hypothyroidism, unspecified (10) Tremor Problem: Chronic (11) Hypotension Problem: Resolved Qualifiers: Hypotension type: postprocedural hypotension Qualified Code(s): I95.81 - Postprocedural hypotension (12) Acute blood loss as cause of postoperative anemia Problem: Acute
[2016-05-16] MEDS: ONDANSETRON HCL/PF 2 MG/ML VIAL IV SCH ×3 (07:28→18:50)
[2016-05-16] MEDS: FERROUS SULFATE 325 MG TABLET PO SCH ×3 (08:23→18:49)
[2016-05-16] MEDS: MULTIVITAMINS 1 CAP CAPSULE PO SCH (08:24)
[2016-05-16] MEDS: METOPROLOL TARTRATE 25 MG TABLET PO SCH ×2 (08:24→20:42)
[2016-05-16] MEDS: levETIRAcetam 500 MG TABLET PO SCH ×2 (08:24→20:41)
[2016-05-16] MEDS: ESCITALOPRAM OXALATE 10 MG TAB PO SCH (08:24)
[2016-05-16] MEDS: ENOXAPARIN SODIUM 30 MG/0.3 ML SYRG SC SCH (11:12)
[2016-05-16] MEDS: FAMOTIDINE 20 MG TABLET PO SCH (20:41)
[2016-05-16] MEDS: PANTOPRAZOLE SODIUM 40 MG TABLET.EC PO SCH (20:41)
[2016-05-16] MEDS: MIRTAZAPINE 15 MG TABLET PO SCH (20:42)
[2016-05-17] MEDS: ONDANSETRON HCL/PF 2 MG/ML VIAL IV SCH ×4 (01:47→19:21)
[2016-05-17] MEDS: AMPICILLIN SODIUM/SULBACTAM NA 1.5 GM in NORMAL SALINE 100 ML IV SCH ×3 (05:19→22:39)
[2016-05-17 05:39] LABS: Hematocrit 28.8 % (37.0-47.0); Hemoglobin 9.2 gm/dL (12.5-16.0); Mean Cell Volume 90.9 fl (78-100); Mean Corpuscular Hgb Conc 31.9 g/dl (32-36); Mean Platelet Volume 11.2 fl (6.0-9.5); Neutrophil % 68.8 % (42-75.0); Platelet Count 187 K/mm3 (150-450); Red Blood Count 3.17 M/mm3 (4.2-5.4); Red Cell Distribution Width 13.9 % (11.5-14.0); White Blood Count 5.9 K/mm3 (4.0-10.5)
[2016-05-17 05:53] LABS: Anion Gap 12.7 mmol/L (6.8-13.8); BUN/Creatinine Ratio 12.1 (9.0-21.6); Potassium 2.7 mmol/L (3.4-4.6)
[2016-05-17 05:54] LABS: Albumin * 1.6 gm/dl (3.4-5.0); Bilirubin Direct 0.1 mg/dL (0.0-0.3); Bilirubin, Total 0.4 mg/dL (0.0-1.1); Bilirubin,Indirect 0.3 mg/dL (0.1-0.7); Ca. Corrected For Albumin 8.7 mg/dL (8.4-10.2); Calcium * 7.1 mg/dL (7.9-10.9); Total Protein 4.8 gm/dL (6.2-8.2)
[2016-05-17] MEDS ORDERED: [UNRECOGNIZED DRUG - OTHER] IV PRN (06:41)
[2016-05-17] MEDS ORDERED: POTASSIUM CHLORIDE IV PRN (06:41)
[2016-05-17] MEDS ORDERED: DEXTROSE 5% IV PRN (06:41)
[2016-05-17] MEDS: LEVOTHYROXINE SODIUM 25 MCG TABLET PO SCH (07:08)
[2016-05-17] MEDS: PANTOPRAZOLE SODIUM 40 MG TABLET.EC PO SCH ×2 (07:09→20:49)
[2016-05-17] MEDS: FERROUS SULFATE 325 MG TABLET PO SCH ×3 (10:17→17:19)
[2016-05-17] MEDS: ESCITALOPRAM OXALATE 10 MG TAB PO SCH (10:18)
[2016-05-17] MEDS: METOPROLOL TARTRATE 25 MG TABLET PO SCH ×2 (10:18→20:49)
[2016-05-17] MEDS: levETIRAcetam 500 MG TABLET PO SCH ×2 (10:18→20:49)
[2016-05-17] MEDS: MULTIVITAMINS 1 CAP CAPSULE PO SCH (10:23)
[2016-05-17] MEDS: POTASSIUM CHLORIDE IV SCH (10:23)
[2016-05-17] MEDS: [UNRECOGNIZED DRUG - OTHER] IV SCH (10:23)
[2016-05-17] MEDS: DEXTROSE 5% IV SCH (10:23)
[2016-05-17] MEDS: ACETAMINOPHEN 325 MG TABLET PO PRN ×2 (10:25→22:37)
--- NOTE | 2016-05-17 12:47 | PN ---
Subjective - Date and Time Seen Date: 05/17/16 Time: 06:20 Subjective Narrative: More confused. Vomiting off and on yesterday, and diarrhea. Had diarrhea still early this morning, but no more vomiting. Objective - Review of Systems Generalized/Overall Review: Reports: No Symptoms Reported - poor historian, due to confusion. - Vitals Vitals: Last Vital Signs Selected Entries 05/17/16 03:03 Temperature 36.9 C Temperature Axillary Source Pulse Rate 68 Respiratory 20 Rate Respiratory Normal Depth Respiratory Normal Effort Blood Pressure 125/78 Blood Pressure Supine Position O2 Sat by Pulse 95 Oximetry Oxygen Delivery Nasal Cannula Method Oxygen Flow 2 Rate - Abnormal Lab Findings Abnormal Lab Findings: Abnormal Lab Results 05/16/16 05/17/16 05/17/16 Range/Units 13:56 04:45 04:45 RBC 3.17 L (4.2-5.4) M/mm3 Hgb 9.2 L (12.5-16.0) gm/dL Hct 28.8 L (37.0-47.0) % MCHC 31.9 L (32-36) g/dl MPV 11.2 H (6.0-9.5) fl Immature Gran % (Auto) 0.90 H (0.001-0.429) % Immature Gran # (Auto) 0.05 H (0.000-0.0310) K/mm3 Lymphocytes % 15.4 L (20-51) % Monocytes % 10.8 H (0.0-9) % Eosinophils % 3.8 H (0.0-3.0) % Lymphocytes # 0.9 L (1.5-3.5) k/mm3 Potassium 2.7 L D (3.4-4.6) mmol/L Chloride 108 H (97-106) mmol/L Carbon Dioxide 23.0 L (24-32.6) mmol/L Est GFR (Non-Af Amer) 47 L (60-130) mL/min Calcium 7.1 L (7.9-10.9) mg/dL AST 58 H (0-48) U/L Total Protein 4.8 L (6.2-8.2) gm/dL Albumin 1.6 L (3.4-5.0) gm/dl Stool Occult Blood Positive H - Exam Constitutional: Present: Alert, Well developed, Mild distress ENT Exam: Present: normal ENT inspection, hearing grossly normal, pharynx normal , TMs normal Respiratory: Present: lungs clear, no respiratory distress Cardiovascular/Chest: Present: regular rate, rhythm, no murmur Abdomen: Present: Normal bowel sounds, soft, nondistended, no rebound tenderness , no hepatospenomegaly, tender - mild diffuse abdominal tenderness Extremity: Present: normal inspection Skin Exam: Present: normal color, warm/dry, no cyanosis Neurologic: Present: alert Appearance: Present: appropriate appearance, neat. Absent: appropriate insight , no memory impairment Eye contact: Present: cooperative Thoughts: Present: normal thought pattern Cauti Physician Documentation - Urinary Catheter Management Urethral (Sauer) Urethral Indwelling: No Date of Insertion: 05/10/16 Date of Removal: 05/12/16 Time of Removal: 06:39 Assessment/Plan Plan Narrative: Advance diet. Follow labs. Follow protocol - Problems/Diagnosis (1) Bipolar 2 disorder Problem: Chronic (2) Osteoarthritis Problem: Chronic Qualifiers: Osteoarthritis location: multiple joints Osteoarthritis type: primary Qualified Code(s): M15.0 - Primary generalized (osteo)arthritis (3) Hypernatremia Problem: Acute (4) [place] (hard of hearing) Problem: Chronic Qualifiers: Hearing loss type: sensorineural Laterality: bilateral Qualified Code(s) : H90.3 - Sensorineural hearing loss, bilateral (5) CAD (coronary artery disease) Problem: Chronic Qualifiers: Coronary Disease-Associated Artery/Lesion type: [place] artery [place] vs. transplanted heart: [place] heart Associated angina: without angina Qualified Code(s): I25.10 - Atherosclerotic heart disease of [place] coronary artery without angina pectoris (6) Hip fracture, left Problem: Resolved Qualifiers: Encounter type: initial encounter Fracture type: closed Qualified Code(s) : S72.002A - Fracture of unspecified part of neck of left femur, initial encounter for closed fracture (7) Dehydration Problem: Acute (8) Hypertension Problem: Chronic Qualifiers: Hypertension type: essential hypertension Qualified Code(s): I10 - Essential (primary) hypertension (9) Hypothyroidism Problem: Chronic Qualifiers: Hypothyroidism type: acquired Qualified Code(s): E03.9 - Hypothyroidism, unspecified (10) Tremor Problem: Chronic (11) Hypotension Problem: Resolved Qualifiers: Hypotension type: postprocedural hypotension Qualified Code(s): I95.81 - Postprocedural hypotension (12) Acute blood loss as cause of postoperative anemia Problem: Acute
--- NOTE | 2016-05-17 12:54 | PN ---
Subjective - Date and Time Seen Date: 05/17/16 Subjective Narrative: Patient less confused this am. No events overnight. Pain well controlled. Objective - Vitals Vitals: Last Vital Signs Temp 37.8 C H 05/17/16 12:23 Pulse 78 05/17/16 12:23 Resp 18 05/17/16 12:23 BP 139/65 05/17/16 12:23 Pulse Ox 93 05/17/16 12:23 - Abnormal Lab Findings Abnormal Lab Findings: Abnormal Lab Results 05/16/16 05/17/16 05/17/16 Range/Units 13:56 04:45 04:45 RBC 3.17 L (4.2-5.4) M/mm3 Hgb 9.2 L (12.5-16.0) gm/dL Hct 28.8 L (37.0-47.0) % MCHC 31.9 L (32-36) g/dl MPV 11.2 H (6.0-9.5) fl Immature Gran % (Auto) 0.90 H (0.001-0.429) % Immature Gran # (Auto) 0.05 H (0.000-0.0310) K/mm3 Lymphocytes % 15.4 L (20-51) % Monocytes % 10.8 H (0.0-9) % Eosinophils % 3.8 H (0.0-3.0) % Lymphocytes # 0.9 L (1.5-3.5) k/mm3 Potassium 2.7 L D (3.4-4.6) mmol/L Chloride 108 H (97-106) mmol/L Carbon Dioxide 23.0 L (24-32.6) mmol/L Est GFR (Non-Af Amer) 47 L (60-130) mL/min Calcium 7.1 L (7.9-10.9) mg/dL AST 58 H (0-48) U/L Total Protein 4.8 L (6.2-8.2) gm/dL Albumin 1.6 L (3.4-5.0) gm/dl Stool Occult Blood Positive H - Exam Exam Narrative: Gen: alert, oriented to person and place, NAD Resp: breathing non-labored MSK: LLE--> dressing c/d/i, mild swelling, 5/5 EHL/FHL/DF/PF, SILT, cap refill brisk Cauti Physician Documentation - Urinary Catheter Management Urethral (Sauer) Urethral Indwelling: No Date of Insertion: 05/10/16 Date of Removal: 05/12/16 Time of Removal: 06:39 Assessment/Plan Plan Narrative: 85 yo F w/ displaced L femoral neck fx s/p L hip hemiarthroplasty, POD #6. - WBAT, anterior precautions - wound healing appropriately - continue PT/OT for progressive mobilization - continue care per Medicine team - dispo: stable from Orthopedic standpoint, d/c planning per Medicine team - Problems/Diagnosis (1) Hip fracture, left Problem: Resolved Qualifiers: Encounter type: initial encounter Fracture type: closed Qualified Code(s) : S72.002A - Fracture of unspecified part of neck of left femur, initial encounter for closed fracture
--- NOTE | 2016-05-17 12:58 | PN ---
Progess Note - Interim Narrative: 05/17/16 12:56 Orthopedic Discharge Recommendations: 1. WBAT, anterior hip precautions. 2. Dressing changes every 2-3 days with 4x4s and tegaderm or Medipore tape. 3. Sponge baths only. 4. PT/OT for progressive mobility and strengthening. 5. DVT ppx: recommend 10 total days of lovenox followed by 6 weeks of 325 mg aspirin daily. 6. Follow up in Orthopedic clinic in 2 weeks. Catarino García MD
[2016-05-17] MEDS: FAMOTIDINE 20 MG TABLET PO SCH (20:49)
[2016-05-17] MEDS: SACCHAROMYCES BOULARDII 250 MG CAPSULE PO SCH (20:49)
[2016-05-17] MEDS: MIRTAZAPINE 15 MG TABLET PO SCH (20:49)
[2016-05-18] MEDS: DEXTROSE 5% IV SCH ×2 (01:20→19:00)
[2016-05-18] MEDS: POTASSIUM CHLORIDE IV SCH ×2 (01:20→19:00)
[2016-05-18] MEDS: [UNRECOGNIZED DRUG - OTHER] IV SCH ×2 (01:20→19:00)
[2016-05-18] MEDS: ONDANSETRON HCL/PF 2 MG/ML VIAL IV SCH ×4 (01:28→20:26)
[2016-05-18] MEDS: AMPICILLIN SODIUM/SULBACTAM NA 1.5 GM in NORMAL SALINE 100 ML IV SCH ×3 (05:19→22:27)
[2016-05-18 05:50] LABS: Hematocrit 30.1 % (37.0-47.0); Hemoglobin 9.5 gm/dL (12.5-16.0); Mean Cell Volume 91.8 fl (78-100); Mean Corpuscular Hgb Conc 31.6 g/dl (32-36); Mean Platelet Volume 10.1 fl (6.0-9.5); Neutrophil # 4.9 K/mm3 (1.3-6.0); Neutrophil % 69.6 % (42-75.0); Platelet Count 276 K/mm3 (150-450); Red Blood Count 3.28 M/mm3 (4.2-5.4); Red Cell Distribution Width 13.9 % (11.5-14.0)
[2016-05-18 06:05] LABS: Albumin * 1.9 gm/dl (3.4-5.0); Anion Gap 13.5 mmol/L (6.8-13.8); BUN/Creatinine Ratio 7.2 (9.0-21.6); Bilirubin Direct 0.1 mg/dL (0.0-0.3); Bilirubin, Total 0.5 mg/dL (0.0-1.1); Bilirubin,Indirect 0.4 mg/dL (0.1-0.7); Calcium * 7.8 mg/dL (7.9-10.9); Carbon Dioxide 21.7 mmol/L (24-32.6); Estimated Creat Clear 25.6; Potassium 3.2 mmol/L (3.4-4.6); Total Protein 5.2 gm/dL (6.2-8.2)
[2016-05-18] MEDS: PANTOPRAZOLE SODIUM 40 MG TABLET.EC PO SCH ×2 (07:07→20:32)
[2016-05-18] MEDS: LEVOTHYROXINE SODIUM 25 MCG TABLET PO SCH (07:07)
[2016-05-18] MEDS: ESCITALOPRAM OXALATE 10 MG TAB PO SCH (09:03)
[2016-05-18] MEDS: METOPROLOL TARTRATE 25 MG TABLET PO SCH ×2 (09:03→20:32)
[2016-05-18] MEDS: levETIRAcetam 500 MG TABLET PO SCH ×2 (09:03→20:32)
[2016-05-18] MEDS: MULTIVITAMINS 1 CAP CAPSULE PO SCH (09:03)
[2016-05-18] MEDS: FERROUS SULFATE 325 MG TABLET PO SCH ×3 (09:03→16:37)
[2016-05-18] MEDS: SACCHAROMYCES BOULARDII 250 MG CAPSULE PO SCH ×2 (09:03→20:32)
--- NOTE | 2016-05-18 17:56 | PN ---
Subjective - Date and Time Seen Date: 05/18/16 Time: 07:00 Subjective Narrative: More confused. Vomiting off and on yesterday, and diarrhea. Had diarrhea still early this morning, but no more vomiting. Objective - Review of Systems Generalized/Overall Review: Reports: Weakness, Malaise EENTM: Reports: No Symptoms Reported Respiratory: Reports: No Symptoms Reported Cardiac: Reports: No Symptoms Reported Abdominal: Reports: No Symptoms Reported Genitourinary Symptoms: Reports: No Symptoms Reported Musculoskeletal Complaints: Reports: No Symptoms Reported Neurological: Reports: No Symptoms Reported Skin: Reports: No Symptoms Reported Endocrine: Reports: No Symptoms Reported Misc: All systems neg except as marked - Vitals Vitals: Last Vital Signs Temp 37.2 C 05/18/16 14:54 Pulse 71 05/18/16 14:54 Resp 16 05/18/16 14:54 BP 140/67 05/18/16 14:54 Pulse Ox 94 05/18/16 15:44 - Abnormal Lab Findings Abnormal Lab Findings: Abnormal Lab Results 05/18/16 05/18/16 Range/Units 05:39 05:39 RBC 3.28 L (4.2-5.4) M/mm3 Hgb 9.5 L (12.5-16.0) gm/dL Hct 30.1 L (37.0-47.0) % MCHC 31.6 L (32-36) g/dl MPV 10.1 H (6.0-9.5) fl Immature Gran % (Auto) 1.00 H (0.001-0.429) % Immature Gran # (Auto) 0.07 H (0.000-0.0310) K/mm3 Lymphocytes % 11.0 L (20-51) % Monocytes % 11.0 H (0.0-9) % Eosinophils % 7.1 H (0.0-3.0) % Lymphocytes # 0.8 L (1.5-3.5) k/mm3 Potassium 3.2 L (3.4-4.6) mmol/L Chloride 109 H (97-106) mmol/L Carbon Dioxide 21.7 L (24-32.6) mmol/L Est GFR (Non-Af Amer) 49 L (60-130) mL/min BUN/Creatinine Ratio 7.2 L (9.0-21.6) Calcium 7.8 L (7.9-10.9) mg/dL AST 77 H (0-48) U/L Total Protein 5.2 L (6.2-8.2) gm/dL Albumin 1.9 L (3.4-5.0) gm/dl - Exam Constitutional: Present: Alert, Cooperative, Well developed ENT Exam: Present: normal ENT inspection, hearing grossly normal Neck: Present: supple, normal inspection Respiratory: Present: lungs clear, no respiratory distress Cardiovascular/Chest: Present: regular rate, rhythm, no murmur Abdomen: Present: Normal bowel sounds, soft, nontender, nondistended, no rebound tenderness, no hepatospenomegaly, no masses /Rectal: Present: Exam deferred Lymphatic: Present: no adenopathy Neurologic: Present: alert Appearance: Present: appropriate appearance, neat Eye contact: Present: cooperative Cauti Physician Documentation - Urinary Catheter Management Urethral (Sauer) Urethral Indwelling: No Date of Insertion: 05/10/16 Date of Removal: 05/12/16 Time of Removal: 06:39 Assessment/Plan Plan Narrative: Potassium improving. Diarrhea improving. Follow labs. 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 transplanted heart: [place] heart Associated angina: without angina Qualified Code(s): I25.10 - Atherosclerotic heart disease of [place] coronary artery without angina pectoris (6) Hip fracture, left Problem: Resolved Qualifiers: Encounter type: initial encounter Fracture type: closed Qualified Code(s) : S72.002A - Fracture of unspecified part of neck of left femur, initial encounter for closed fracture (7) Dehydration Problem: Acute (8) Hypertension Problem: Chronic Qualifiers: Hypertension type: essential hypertension Qualified Code(s): I10 - Essential (primary) hypertension (9) Hypothyroidism Problem: Chronic Qualifiers: Hypothyroidism type: acquired Qualified Code(s): E03.9 - Hypothyroidism, unspecified (10) Tremor Problem: Chronic (11) Hypotension Problem: Resolved Qualifiers: Hypotension type: postprocedural hypotension Qualified Code(s): I95.81 - Postprocedural hypotension (12) Acute blood loss as cause of postoperative anemia Problem: Acute
[2016-05-18] MEDS: ACETAMINOPHEN 325 MG TABLET PO PRN (20:27)
[2016-05-18] MEDS: MIRTAZAPINE 15 MG TABLET PO SCH (20:32)
[2016-05-18] MEDS: FAMOTIDINE 20 MG TABLET PO SCH (20:32)
[2016-05-18] MEDS ORDERED: ONDANSETRON HCL/PF 2 MG/ML VIAL IV PRN (23:08)
[2016-05-19] MEDS: AMPICILLIN SODIUM/SULBACTAM NA 1.5 GM in NORMAL SALINE 100 ML IV SCH (05:00)
[2016-05-19 05:49] LABS: Hematocrit 27.8 % (37.0-47.0); Hemoglobin 8.9 gm/dL (12.5-16.0); Mean Cell Volume 90.3 fl (78-100); Mean Corpuscular Hemoglobin 28.9 pg (27-31); Mean Platelet Volume 9.7 fl (6.0-9.5); Neutrophil # 6.6 K/mm3 (1.3-6.0); Neutrophil % 76.9 % (42-75.0); Platelet Count 312 K/mm3 (150-450); Red Blood Count 3.08 M/mm3 (4.2-5.4); Red Cell Distribution Width 13.9 % (11.5-14.0); White Blood Count 8.5 K/mm3 (4.0-10.5)
[2016-05-19 06:07] LABS: Albumin * 1.7 gm/dl (3.4-5.0); Anion Gap 14.6 mmol/L (6.8-13.8); BUN/Creatinine Ratio 8.3 (9.0-21.6); Bilirubin Direct 0.1 mg/dL (0.0-0.3); Bilirubin, Total 0.5 mg/dL (0.0-1.1); Bilirubin,Indirect 0.4 mg/dL (0.1-0.7); Calcium * 7.8 mg/dL (7.9-10.9); Carbon Dioxide 21.9 mmol/L (24-32.6); Estimated Creat Clear 26.4; Potassium 3.5 mmol/L (3.4-4.6); Total Protein 4.6 gm/dL (6.2-8.2)
[2016-05-19] MEDS: PANTOPRAZOLE SODIUM 40 MG TABLET.EC PO SCH (06:30)
[2016-05-19] MEDS: LEVOTHYROXINE SODIUM 25 MCG TABLET PO SCH (06:31)
[2016-05-19 06:51] VITALS: BP 137/88
--- NOTE | 2016-05-19 08:05 | DS ---
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 transplanted heart: [place] heart Associated angina: without angina Qualified Code(s): I25.10 - Atherosclerotic heart disease of [place] coronary artery without angina pectoris (6) Hip fracture, left Problem: Resolved Qualifiers: Encounter type: initial encounter Fracture type: closed Qualified Code(s) : S72.002A - Fracture of unspecified part of neck of left femur, initial encounter for closed fracture (7) Dehydration Problem: Resolved (8) Hypertension Problem: Chronic Qualifiers: Hypertension type: essential hypertension Qualified Code(s): I10 - Essential (primary) hypertension (9) Hypothyroidism Problem: Chronic Qualifiers: Hypothyroidism type: acquired Qualified Code(s): E03.9 - Hypothyroidism, unspecified (10) Tremor Problem: Chronic (11) Hypotension Problem: Resolved Qualifiers: Hypotension type: postprocedural hypotension Qualified Code(s): I95.81 - Postprocedural hypotension (12) Acute blood loss as cause of postoperative anemia Problem: Acute (13) Viral gastroenteritis Problem: Acute Description of Stay: Hip was repaired without incident. Delerium emerged on top of chronic dementia. Better now. Shortly before intended discharge, developed acute viral gastroenteritis, which has now almost entirely resolved. Procedures Performed: see notes below - Left hip uncemented hemiarthroplasty Discharge Disposition: Other HealthCare facility Disposition: Other health care facility Condition: Stable Discharge Activity: Other Discharge Diet: General/regular food Discharge Level of Care:: SNF - Retirement Retirement Therapy: Physicial Therapy, Occupation Therapy Consultation Done:: mckinley Short Additional Patient Instructions (free text): Discharge to [facility]. Fax orders to [phone]. Call report to [phone]. Orthopedic Discharge Recommendations: 1. WBAT, anterior hip precautions. 2. Dressing changes every 2-3 days with 4x4s and tegaderm or Medipore tape. 3. Sponge baths only. 4. PT/OT for progressive mobility and strengthening. 5. DVT ppx: recommend 10 total days of lovenox followed by 6 weeks of 325 mg aspirin daily. 6. Follow up in Orthopedic clinic in 2 weeks. CBC and BMP blood tests in 1 week Prescriptions (Any new or edited meds): Aspirin 325 mg PO DAILY #42 tab Enoxaparin Sodium [Lovenox] 40 mg SQ DAILY #10 syr Complete Home Medications List: Complete Home Medication List: Escitalopram Oxalate [Lexapro] 10 mg PO DAILY 07/30/14 Levothyroxine Sodium [Synthroid] 50 mcg PO DAILY 07/30/14 Metoprolol Tartrate [Lopressor] 25 mg PO BID 07/30/14 Mirtazapine [Remeron] 15 mg PO HS 07/30/14 Atorvastatin Calcium 20 mg PO HS 05/10/16 Clopidogrel Bisulfate [Plavix] 75 mg PO DAILY 05/10/16 Famotidine 20 mg PO HS 05/10/16 Lisinopril [Zestril] 2.5 mg PO DAILY 05/10/16 Mirtazapine [Remeron] 15 mg PO HS PRN 05/10/16 Acetaminophen [Tylenol] 650 mg PO QID PRN #0 tablet 05/19/16 Aspirin 325 mg PO DAILY #42 tab 05/19/16 Enoxaparin Sodium [Lovenox] 40 mg SQ DAILY #10 syr 05/19/16 Ferrous Sulfate 325 mg PO TIDWM tablet 05/19/16 Mag Hydrox/Al Hydrox/Simeth [Maalox Plus Suspension] 30 ml PO Q6H PRN #0 udc 11/25 Mirtazapine [Remeron] 15 mg PO HS tablet 05/19/16 Multivitamins [Multivitamin Haris] 1 cap PO DAILY capsule 05/19/16 Pantoprazole Sodium [Protonix] 40 mg PO BID@0700,2100 tablet. 05/19/16 levETIRAcetam [Keppra] 250 mg PO BID tablet 05/19/16
[2016-05-19] MEDS: levETIRAcetam 500 MG TABLET PO SCH (08:38)
[2016-05-19] MEDS: MULTIVITAMINS 1 CAP CAPSULE PO SCH (08:38)
[2016-05-19] MEDS: FERROUS SULFATE 325 MG TABLET PO SCH (08:38)
[2016-05-19] MEDS: METOPROLOL TARTRATE 25 MG TABLET PO SCH (08:38)
[2016-05-19] MEDS: SACCHAROMYCES BOULARDII 250 MG CAPSULE PO SCH (08:38)
[2016-05-19] MEDS: ESCITALOPRAM OXALATE 10 MG TAB PO SCH (08:38)
[2016-05-19] MEDS ORDERED: BENZOCAINE/MENTHOL 16 EACH BOX MM PRN (10:20)
== END 2016-05-19 11:50 | disposition short-term general hospital (02) | DRG 470 ==
LOC: ER 10:05 → MS 14:36 → SCU 05-11 13:26 → MS 05-12 15:27
PROVIDERS: ADMIT Allergy & Immunology; ATTEND Allergy & Immunology
PROC: 0HQLXZZ Repair Left Lower Leg Skin, External Approach (ICD-10-PCS; 2016-05-11)
PROC: 0SRS0JA Replacement of Left Hip Joint, Femoral Surface with Synthetic Substitute, Uncemented, Open Approach (ICD-10-PCS; principal; 2016-05-11 09:15)
DX: S72.002A Fracture of unspecified part of neck of left femur, initial encounter for closed fracture (principal); E87.0 Hyperosmolality and hypernatremia; L76.12 Accidental puncture and laceration of skin and subcutaneous tissue during other procedure; I95.81 Postprocedural hypotension; Y92.512 Supermarket, store or market as the place of occurrence of the external cause; Y84.8 Other medical procedures as the cause of abnormal reaction of the patient, or of later complication, without mention of misadventure at the time of the procedure; Y92.234 Operating room of hospital as the place of occurrence of the external cause; A08.4 Viral intestinal infection, unspecified; E86.0 Dehydration; I10 Essential (primary) hypertension; I25.10 Atherosclerotic heart disease of native coronary artery without angina pectoris; E03.9 Hypothyroidism, unspecified; W18.30XA Fall on same level, unspecified, initial encounter; I25.2 Old myocardial infarction; Z95.5 Presence of coronary angioplasty implant and graft; Z23 Encounter for immunization
CPT/HCPCS: 12005; 27236; 36415; 70450; 71010; 73502; 74020; 80048; 80053; 80076; 81001; 82248; 82272; 84439; 84443; 84484; 85025; 85027; 85610; 85730; 87493; 90686; 93005; 94640; 96365; 97110; 97116; 97140; 97162; 97165; 97530; 97535; 99284; G0008